=== PATIENT | female | born 1995 | race Caucasian/White ===

== ENCOUNTER 2017-06-20 19:28 | Emergency (ER) | payer MEDICAID ==
[~2017-06-20] VITALS: Ht 165.1 cm; Wt 86.9 kg
[2017-06-20 19:28] VITALS: BP 137/69
[~2017-06-20 19:28] MED LIST: ACET50TA PO; IBUP80TA PO
[2017-06-20] MEDS ORDERED: ONDANSETRON 4 MG ORAL DISINTEGRATING TAB (S0181) PO ONE (19:45)
[2017-06-20] MEDS ORDERED: GI COCKTAIL 50ML BTL(HYOSCYAMINE/MAALOX/LIDOCAINE VISCOUS)(1:3:1) PO ONE (19:45)
[2017-06-20] MEDS ORDERED: REGL10TA6 PO (19:53)
== END 2017-06-20 20:02 | disposition home or self-care (01) ==
LOC: M ED 19:51
DX: O26.891 Other specified pregnancy related conditions, first trimester (principal); R20.2 Paresthesia of skin; O21.9 Vomiting of pregnancy, unspecified; O99.331 Smoking (tobacco) complicating pregnancy, first trimester; F17.210 Nicotine dependence, cigarettes, uncomplicated; Z3A.00 Weeks of gestation of pregnancy not specified

== ENCOUNTER → 2017-10-22 | Outpatient (REF) | payer OTHER ==
[~2017-10-22] MED LIST changes: +REGL10TA6 PO
[2017-10-22 18:41] LABS: HCG, SERUM QUANTITATIVE 16767 MIU/ML
[2017-10-22 19:45] LABS: MEAN CORPUSCULAR HEMOGLOBIN 33.8 pg (27.0-33.0); MEAN CORPUSCULAR HGB CONC 35.1 g/dl (32.0-36.5); MEAN CORPUSCULAR VOLUME 96.4 fl (80.0-96.0); PLATELET COUNT, AUTOMATED 286 10^3/uL (150-450); RED CELL DISTRIBUTION WIDTH 12.1 % (11.5-14.5); WHITE BLOOD COUNT 13.4 10^3/uL (4.0-10.0)
== END ==
LOC: M LAB REF 17:12
PROVIDERS: ATTEND Obstetrics & Gynecology
DX: O36.80X0 Pregnancy with inconclusive fetal viability, not applicable or unspecified (principal); Z32.01 Encounter for pregnancy test, result positive; Z3A.00 Weeks of gestation of pregnancy not specified

== ENCOUNTER → 2017-10-26 | Outpatient (CLI) | payer OTHER ==
--- NOTE | 2017-10-27 04:18 | REP ---
Clinical: Anatomical evaluation. Comparison: None . Findings: Examination demonstrates a single live intrauterine in cephalic presentation. motion is identified by technologist. Placenta is noted anteriorly and grade zero without evidence for placenta previa or abruption. Amniotic fluid volume is low normal. Cervix measures 3.9 cm in length and appears closed. No evidence for nuchal cord. Gestational age by current measurements 30 weeks 1 day with MILAGROS 01/03/2018 . FHR equals 144 beats per minute. BPD 7.5 cm 30 weeks 2-day HC 28.0 cm 30 weeks 4 days AC 26.2 cm 30 weeks 3-day FL 5.7 cm 29 weeks 5 days HL 5.1 cm 29 weeks 4 days HC/AC ratio 1.07 Estimated weight 1527 grams ( 43rd percentile). Amniotic fluid index equals 8.3 cm (9.0 - 23.4). Anatomical assessment demonstrates normal structures including cranium, choroid plexus, cavum, cerebellum/posterior fossa, facial features, lungs, four-chamber heart/ventricular outflow tracts, diaphragm, stomach, cord insertion/three-vessel cord, kidneys/bladder, spine, and extremities. Limited evaluation of the facial profile. Impression: 1. Single live intrauterine in cephalic presentation. Limited evaluation of the facial profile noted. Remainder of the anatomical assessment is complete and normal. 2. Amniotic fluid volume is lower limits of normal. Signed by Rosendo Connor MD 10/27/2017 01:09 A
== END ==
LOC: M RAD 09:15
PROVIDERS: ATTEND Obstetrics & Gynecology
DX: O36.80X0 Pregnancy with inconclusive fetal viability, not applicable or unspecified (principal); Z3A.30 30 weeks gestation of pregnancy

== ENCOUNTER → 2017-11-05 | Outpatient (CLI) | payer OTHER ==
[2017-11-05 11:32] LABS: MEAN CORPUSCULAR HEMOGLOBIN 33.1 pg (27.0-33.0); MEAN CORPUSCULAR HGB CONC 34.8 g/dl (32.0-36.5); PLATELET COUNT, AUTOMATED 246 10^3/uL (150-450); WHITE BLOOD COUNT 9.5 10^3/uL (4.0-10.0)
[2017-11-06 08:57] LABS: AB SCREEN (INDIRECT COOMBS)VIS 1 1
== END ==
LOC: M LAB 09:31
DX: Z34.83 Encounter for supervision of other normal pregnancy, third trimester (principal)
CPT/HCPCS: 82950

== ENCOUNTER 2017-11-11 12:15 | Emergency (ER) | payer OTHER | END 2017-11-11 14:36 | disposition home or self-care (01) | LOC: M ED 12:15 | DX: O99.513 Diseases of the respiratory system complicating pregnancy, third trimester (principal); J20.9 Acute bronchitis, unspecified; B34.9 Viral infection, unspecified; Z3A.32 32 weeks gestation of pregnancy; O99.353 Diseases of the nervous system complicating pregnancy, third trimester; G43.909 Migraine, unspecified, not intractable, without status migrainosus; Z88.2 Allergy status to sulfonamides; Z88.8 Allergy status to other drugs, medicaments and biological substances; O99.333 Smoking (tobacco) complicating pregnancy, third trimester; F17.210 Nicotine dependence, cigarettes, uncomplicated | CPT/HCPCS: 87804 ==

== ENCOUNTER → 2017-12-08 | Outpatient (REF) | payer OTHER | LOC: M LAB REF 12:57 | DX: Z34.83 Encounter for supervision of other normal pregnancy, third trimester (principal); Z3A.36 36 weeks gestation of pregnancy | CPT/HCPCS: 87086 ==

== ENCOUNTER → 2017-12-08 | Outpatient (REF) | payer OTHER | LOC: M LAB REF 12:52 | DX: Z34.83 Encounter for supervision of other normal pregnancy, third trimester (principal); Z3A.36 36 weeks gestation of pregnancy | CPT/HCPCS: 87081 ==

== ENCOUNTER → 2017-12-15 | Outpatient (REF) | payer OTHER | LOC: M LAB REF 13:29 | DX: Z34.83 Encounter for supervision of other normal pregnancy, third trimester (principal) ==

== ENCOUNTER 2018-01-01 16:14 | Inpatient (IN) | payer OTHER ==
[2018-01-01] MEDS: LACTATED RINGER'S 1000 ML IV (17:38)
[2018-01-01] MEDS ORDERED: LR 1,000 ML IV (17:45)
[2018-01-01 17:46] LABS: HEMATOCRIT 35.8 % (36.0-47.0); HEMOGLOBIN 12.3 g/dl (12.0-16.0); MEAN CORPUSCULAR HEMOGLOBIN 32.6 pg (27.0-33.0); MEAN CORPUSCULAR HGB CONC 34.4 g/dl (32.0-36.5); PLATELET COUNT, AUTOMATED 261 10^3/uL (150-450); RED BLOOD COUNT 3.77 10^6/uL (4.00-5.40); RED CELL DISTRIBUTION WIDTH 12.4 % (11.5-14.5); WHITE BLOOD COUNT 12.8 10^3/uL (4.0-10.0)
[2018-01-01] MEDS ORDERED: FENTANYL 2MCG/ML ROPIVACAINE 0.2% IN 0.9% NACL 200ML IVBAG As Ordered (18:07)
[2018-01-01 18:42] LABS: AMPHETAMINES URINE REFLEX NEGATIVE (NEGATIVE); BARBITURATES URINE REFLEX NEGATIVE (NEGATIVE); BENZODIAZEPINES URINE REFLEX NEGATIVE (NEGATIVE); COCAINE METABOLITE URINE REFLE NEGATIVE (NEGATIVE); METHADONE URINE REFLEX NEGATIVE (NEGATIVE); OPIATES URINE REFLEX NEGATIVE (NEGATIVE); PHENCYCLIDINE URINE REFLEX NEGATIVE (NEGATIVE)
[2018-01-01 18:52] LABS: CANNABINOIDS URINE REFLEX PENDING CONFIRMATION (NEGATIVE)
[2018-01-01] MEDS ORDERED: OXYTOCIN 30 UNITS IN 0.9% NaCl 500ML IV BAG (J2590) As Ordered (19:32)
[2018-01-01] MEDS: OXYTOCIN DRIP 30 UNITS in APPROPRIATE DILUENT 1 EA IV (20:20)
[2018-01-01] MEDS ORDERED: IBUPROFEN 800 MG TAB PO (20:45)
[2018-01-01] MEDS ORDERED: METHYLERGONOVINE MALEATE 0.2 MG TAB PO (20:45)
[2018-01-01] MEDS ORDERED: MEASLES,MUMPS,RUBELLA VACCINE INJ (MMR-II) (90707) SC (20:45)
[2018-01-01] MEDS ORDERED: ANUSOL HC CREAM 30GM TOP (20:45)
[2018-01-01] MEDS ORDERED: ACETAMINOPHEN 500 MG TAB PO (20:45)
[2018-01-01] MEDS ORDERED: DIBUCAINE 1% OINTMENT 30GM TOP (20:45)
[2018-01-01] MEDS ORDERED: DOCUSATE SODIUM 100 MG CAP PO (20:45)
[2018-01-01 21:43] LABS: CORD GAS ABE A -2.8; CORD GAS ABE V -1.2; CORD GAS HCO3 A 22.9 MEQ/L; CORD GAS HCO3 V 23.5 MEQ/L; CORD GAS O2 SAT A 66.4 %; CORD GAS O2 SAT V 86.5 %; CORD GAS PCO2 A 43.1 mmHg; CORD GAS PCO2 V 39.5 mmHg; CORD GAS PH A 7.344 UNITS; CORD GAS PH V 7.392 UNITS; CORD GAS PO2 A 28.2 mmHg; CORD GAS PO2 V 39.4 mmHg; CORD GAS SBC A 21.3 MEQ/L; CORD GAS SBC V 23.2 MEQ/L; CORD GAS TCO2 A 24.3 MEQ/L; CORD GAS TCO2 V 24.7 MEQ/L
[2018-01-02] MEDS: OXYTOCIN DRIP 30 UNITS in APPROPRIATE DILUENT 1 EA IV (01:14)
[2018-01-02] MEDS: PRENATAL VITAMINS CHEWABLE TABLET PO (08:08)
[2018-01-02 14:58] LABS: FETAL SCREEN PROF. 1 1
[2018-01-02] MEDS: RHOGAM 300 MCG (1500 IU) INJ (J2790) IM (15:24)
[2018-01-03] MEDS: PRENATAL VITAMINS CHEWABLE TABLET PO (08:20)
== END 2018-01-03 13:10 | disposition home or self-care (01) | DRG 560 ==
LOC: M LDO 16:14 → M LDI 16:57 → M OBS 22:37
PROVIDERS: Obstetrics & Gynecology
PROC: 10E0XZZ Delivery of Products of Conception, External Approach (ICD-10-PCS; principal; 2018-01-01)
PROC: 10907ZC Drainage of Amniotic Fluid, Therapeutic from Products of Conception, Via Natural or Artificial Opening (ICD-10-PCS; 2018-01-01)
PROC: 30233S1 Transfusion of Nonautologous Globulin into Peripheral Vein, Percutaneous Approach (ICD-10-PCS; 2018-01-02)
DX: O80 Encounter for full-term uncomplicated delivery (principal); Z88.1 Allergy status to other antibiotic agents; Z37.0 Single live birth; Z3A.39 39 weeks gestation of pregnancy

== ENCOUNTER 2019-03-11 07:27 | Emergency (ER) | payer OTHER ==
[~2019-03-11] VITALS: Ht 165.1 cm; Wt 86.3 kg
[~2019-03-11 07:27] MED LIST changes: -ACET50TA PO; +IBUP-1114 PO; +MAPA500T2 PO; +PRENTAB9 PO
[2019-03-11] MEDS ORDERED: NS 1,000 ML IV ONE (08:00)
[2019-03-11] MEDS ORDERED: KETOROLAC 30 MG/ML VIAL (J1885) IV ONE (08:00)
[2019-03-11] MEDS ORDERED: ONDANSETRON 4MG/2ML VIAL (J2405) IV ONE ×2 (08:00→11:00)
[2019-03-11] MEDS ORDERED: METOCLOPRAMIDE INJ 10MG/2ML VIAL (J2765) IV ONE (08:15)
[2019-03-11] MEDS ORDERED: ACETAMINOPHEN TAB 650MG DOSE (2X325MG) PO ONE (08:15)
[2019-03-11 09:43] LABS: BASO % 0.3 % (0.0-1.0); EOS % 0.1 % (0.0-3.0); HEMATOCRIT 39.2 % (36.0-47.0); HEMOGLOBIN 13.5 g/dl (12.0-15.5); LYMPH # 1.6 10^3/uL (1.5-6.5); LYMPH % 10.4 % (24.0-44.0); MEAN CORPUSCULAR HEMOGLOBIN 32.7 pg (27.0-33.0); MEAN CORPUSCULAR HGB CONC 34.4 g/dl (32.0-36.5); MEAN CORPUSCULAR VOLUME 94.9 fl (80.0-96.0); MONO # 0.3 10^3/uL (0.0-0.8); MONO % 1.8 % (0.0-5.0); NEUTROPHILS # 13.2 10^3/uL (1.8-7.7); NEUTROPHILS % 86.5 % (36.0-66.0); PLATELET COUNT, AUTOMATED 305 10^3/uL (150-450); RED BLOOD COUNT 4.13 10^6/uL (4.00-5.40); WHITE BLOOD COUNT 15.3 10^3/uL (4.0-10.0)
[2019-03-11 10:17] LABS: ALBUMIN 3.1 GM/DL (3.2-5.2); ALT/SGPT 12 U/L (12-78); BILIRUBIN,DIRECT < 0.1 MG/DL (0.0-0.2); BILIRUBIN,TOTAL 0.2 MG/DL (0.2-1.0); BLOOD UREA NITROGEN 6 MG/DL (7-18); CALCIUM LEVEL 8.7 MG/DL (8.5-10.1); CARBON DIOXIDE LEVEL 26 MEQ/L (21-32); CHLORIDE LEVEL 108 MEQ/L (98-107); CREATININE FOR GFR 0.57 MG/DL (0.55-1.30); GLOMERULAR FILTRATION RATE > 60.0 (>60); GLUCOSE, FASTING 97 MG/DL (70-100); LIPASE 98 U/L (73-393); POTASSIUM SERUM 4.3 MEQ/L (3.5-5.1); SODIUM LEVEL 140 MEQ/L (136-145); TOTAL PROTEIN 7.2 GM/DL (6.4-8.2)
--- NOTE | 2019-03-11 10:48 | REP ---
OB ULTRASOUND: Real-time sonographic evaluation of the gravid uterus performed. There is a single living intrauterine gestation with an estimated gestational age 22 weeks based on today's ultrasound. EDC 07/15/2019. Biometry and Growth: BPD 51 mm = 21 weeks 2 days, 30th percentile HC 198 mm = 22 weeks 0 days, 47th percentile AC 168 mm = 21 weeks 6 days, 45th percentile FL 39 mm = 22 weeks 4 days, 62nd percentile HC/AC ratio 1.18 within normal range. Estimated weight 475 grams, 46th percentile SEEN/GROSSLY UNREMARKABLE Lateral ventricles Yes Posterior fossa Yes Upper lip Yes Four-chamber heart Yes LVOT Yes RVOT Yes Stomach Yes Cord insertion Yes Three vessel cord Yes Kidneys Yes Bladder Yes Spine No Cervical length: Cervix is closed and measures 4.8 cm in length. heart rate: 147 beats per minute. position: Vertex. Placenta: Anterior with no evidence of previa or abruption. Amniotic fluid: Within normal limits. Electronically Signed by Obi Rene MD 03/11/2019 01:31 P
[2019-03-11] MEDS ORDERED: ZOFR8TAB24 PO (11:34)
[2019-03-11] MEDS ORDERED: MACR100C43 PO (11:37)
[2019-03-11 11:44] VITALS: BP 122/66
== END 2019-03-11 12:13 | disposition home or self-care (01) ==
LOC: M ED 07:27
DX: O23.12 Infections of bladder in pregnancy, second trimester (principal); O99.332 Smoking (tobacco) complicating pregnancy, second trimester; Z3A.22 22 weeks gestation of pregnancy; Z88.1 Allergy status to other antibiotic agents; Z88.2 Allergy status to sulfonamides
CPT/HCPCS: 76811; 80048; 80076; 81001; 81025; 83690; 84702; 85025; 87086; 96361; 96374; 96375; 99284; J2405; J2765

== ENCOUNTER → 2019-04-12 | Outpatient (REF) | payer OTHER ==
[~2019-04-12] MED LIST changes: +MACR100C43 PO; +ZOFR8TAB24 PO
[2019-04-12 18:35] LABS: HEMATOCRIT 33.4 % (36.0-47.0); HEMOGLOBIN 11.4 g/dl (12.0-15.5); MEAN CORPUSCULAR HEMOGLOBIN 33.2 pg (27.0-33.0); MEAN CORPUSCULAR HGB CONC 34.1 g/dl (32.0-36.5); MEAN CORPUSCULAR VOLUME 97.4 fl (80.0-96.0); PLATELET COUNT, AUTOMATED 234 10^3/uL (150-450); RED BLOOD COUNT 3.43 10^6/uL (4.00-5.40); WHITE BLOOD COUNT 11.8 10^3/uL (4.0-10.0)
[2019-04-12 19:08] LABS: HCG, SERUM QUANTITATIVE 12299 MIU/ML
[2019-04-13 09:53] LABS: RUBELLA IgG QUALITATIVE IMMUNE (IMMUNE)
[2019-04-13 10:21] LABS: HEPATITIS C VIRUS ABY INDEX < 0.0 INDEX (<0.8)
[2019-04-13 10:57] LABS: HIV 1&2 SCREEN CENTAUR NEGATIVE (NEGATIVE)
== END ==
LOC: M LAB REF 16:33
PROVIDERS: ATTEND Obstetrics & Gynecology
DX: Z34.81 Encounter for supervision of other normal pregnancy, first trimester (principal)

== ENCOUNTER → 2019-05-10 | Outpatient (CLI) | payer OTHER ==
[2019-05-10 10:55] LABS: HEMATOCRIT 35.8 % (36.0-47.0); HEMOGLOBIN 12.2 g/dl (12.0-15.5); MEAN CORPUSCULAR HEMOGLOBIN 33.1 pg (27.0-33.0); MEAN CORPUSCULAR HGB CONC 34.1 g/dl (32.0-36.5); PLATELET COUNT, AUTOMATED 229 10^3/uL (150-450); RED BLOOD COUNT 3.69 10^6/uL (4.00-5.40)
== END ==
LOC: M LAB 08:58
PROVIDERS: ATTEND Obstetrics & Gynecology
DX: Z34.83 Encounter for supervision of other normal pregnancy, third trimester (principal); Z36.89 Encounter for other specified antenatal screening

== ENCOUNTER → 2019-05-17 | Outpatient (REF) | payer OTHER | LOC: M LAB REF 12:39 | PROVIDERS: ATTEND Obstetrics & Gynecology | DX: Z34.83 Encounter for supervision of other normal pregnancy, third trimester (principal) ==

== ENCOUNTER → 2019-05-23 | Outpatient (CLI) | payer OTHER ==
[~2019-05-23] MED LIST changes: +ACET-683 PO; +AUGM875T28 PO
== END ==
LOC: M LAB 07:55
PROVIDERS: ATTEND Obstetrics & Gynecology
DX: O99.810 Abnormal glucose complicating pregnancy (principal); Z3A.00 Weeks of gestation of pregnancy not specified

== ENCOUNTER → 2019-05-31 | Outpatient (REF) | payer OTHER ==
[~2019-05-31] MED LIST changes: -ACET-683 PO; -AUGM875T28 PO
== END ==
LOC: M LAB REF 13:25
PROVIDERS: ATTEND Obstetrics & Gynecology
DX: Z34.83 Encounter for supervision of other normal pregnancy, third trimester (principal)
CPT/HCPCS: 86850; 86901; 87086; J2790

== ENCOUNTER → 2019-06-23 | Outpatient (REF) | payer OTHER ==
[~2019-06-23] MED LIST changes: +ACET-683 PO; +AUGM875T28 PO
== END ==
LOC: M LAB REF 14:12
PROVIDERS: ATTEND Obstetrics & Gynecology
DX: Z34.83 Encounter for supervision of other normal pregnancy, third trimester (principal)

== ENCOUNTER 2019-07-08 10:57 | Emergency (ER) | payer OTHER ==
[~2019-07-08] VITALS: Ht 165.1 cm; Wt 85.7 kg
[2019-07-08 10:57] VITALS: BP 126/87
[~2019-07-08 10:57] MED LIST changes: -ACET-683 PO; -AUGM875T28 PO
[2019-07-08] MEDS ORDERED: AUGM875T28 PO (11:29)
[2019-07-08] MEDS ORDERED: NEOSPORIN OINT 0.9 GM PKT (FLOOR STOCK) TOP ONE (11:45)
== END 2019-07-08 11:46 | disposition home or self-care (01) ==
LOC: M ED 10:57
DX: O9A.213 Injury, poisoning and certain other consequences of external causes complicating pregnancy, third trimester (principal); S51.831A Puncture wound without foreign body of right forearm, initial encounter; W54.0XXA Bitten by dog, initial encounter; Y92.018 Other place in single-family (private) house as the place of occurrence of the external cause; Z3A.40 40 weeks gestation of pregnancy; Z88.2 Allergy status to sulfonamides; O99.333 Smoking (tobacco) complicating pregnancy, third trimester; F17.210 Nicotine dependence, cigarettes, uncomplicated

== ENCOUNTER 2019-07-09 02:34 | Inpatient (IN) | payer OTHER ==
[2019-07-09] VITALS (9 sets, daily range): BP systolic 116–146; BP diastolic 64–84
[~2019-07-09] VITALS: Ht 165.1 cm; Wt 86.0 kg
[~2019-07-09 02:34] MED LIST changes: +AUGM875T28 PO
[2019-07-09] MEDS ORDERED: LR 1,000 ML IV SCH (03:00)
[2019-07-09] MEDS ORDERED: LACTATED RINGER'S 1000 ML IV STA (03:00)
--- NOTE | 2019-07-09 03:18 | HPEPDOC ---
Obstetrical History & Physical General Date of Admission Jul 09, 2019 at 02:58 History of Present Illness Chief Complaint: Contractions, term Information Provided By: Patient Age: 23 : 4 Term: 3 Pre-term: 0 Abortions: 0 Livin Care Care: Limited Care Dating Final EDC: Jul 15, 2019 Final EDC by: 2nd trimester (US) EGA at Admission: 39 (+1) Antepartum Course Height (inches): 62 Pre- weight (lbs.): 190 Admission Weight (lbs.): 187 Past Medical History Past Obstetrical History #1: Past Obstetrical History: Primgravida (2014) Type of Delivery: Spontaneous Vaginal Del. Sex of Infant: Male (7#14) Past Obstetrical History #2: Past Obstetrical History: Multigravida (2016) Type of Delivery: Spontaneous Vaginal Del. Sex of Infant: Female (7) Complications: No Past Obstetrical History #3: Past Obstetrical History: Multigravida (2018) Type of Delivery: Spontaneous Vaginal Del. Sex of Infant: Female (7#1) Complications: No Past Medical History Surgical History: Denies/None Family History Significant Family History: Asthma, Cancer, Diabetes, Heart disease Social History Marital Status: Single Psychosocial History: No pertinent psych hx * Smoker: current smoker Alcohol: Denies Drugs: denies Abuse Violence Screening Have you been hit/kicked/slapp: No Have you been sexually assault: No Allergies Coded Allergies: sulfamethoxazole (Verified Allergy, Intermediate, swelling/hives, 03/11/19) trimethoprim (Verified Allergy, Intermediate, swelling/hives, 03/11/19) Medications Scheduled Amoxicillin/Potassium Clav (Augmentin 875-125 Tablet) 1 Each Tablet, 1 TAB PO BID Physical Examination Physical Examination GENERAL: Alert and oriented times three. BREAST: . ABDOMEN: Gravid and non-tender to touch. FETUS: Is vertex (VTX) by sterile vaginal examination (SVE), fetus is vertex (VTX) by Taiwo. HEART RATE: Regular rate and rhythm. LUNGS: Clear to auscultation (CTA). EXTREMITIES: No edema. No clonus. Deep tendon reflexes (DTRs) + 2. Pertinent Laboratoy Data Blood Type: A- RBC Antibody Screen: Negative HIV: Negative Hepatitis B: Negative Hepatitis C: Negative Rapid Plasma Reagin: Nonreactive Rubella: Immune Chlamydia/Gonorrhea: Negative Group B Streptococcus: Negative Glucose Tolerance Test: 140 (80/168/92/49) Anatomy Ultrasound Ultrasound Date: March 11, 2019 Placenta Location: Anterior Normal Anatomy: Yes Other Ultrasounds 04/15/19 f/u 1200gm 96% 06/05/19 f/u 1631gm, appropriate growth Steroid Therapy Steroid Therapy: No Vaginal Examination Dilation: 6 cm Effacement: 90% Station: -2 Cervical Consistency: Soft Cervical Position: Middle Presentation: Cephalic presentation Assessment Heart Rate (FHR): 125 Variability: Moderate Accelerations: Positive Decelerations: None Tocometer Contractions: Yes Frequency: regular, every 2-5 min. Strength: palpated as moderate Assessment/Plan Assessment Christina is a 23-year-old (G)4 para (P)3-0-0-3 at 39+1 weeks by 22-week ultrasound. Presents to Labor and Delivery (L&D) with reports of contractions since midnight and bloody show. Denies LOF. Fetus is active.. Plan Admit and orient. Lunchroom Aide and consent. Diet: clear. Group B Streptococcus (GBS) negative. Labs and intravenous (IV) per unit protocol. Counseled on Pitocin and induction of labor (IOL). Lactated Ringers (LR): Bolus 500 mL, then at 125 mL/hr. Considering epidural Anticipate normal spontaneous delivery (). C-S as appropriate. Clair Weston CNM Jul 09, 2019 03:18
[2019-07-09 03:22] LABS: HEMATOCRIT 32.6 % (36.0-47.0); HEMOGLOBIN 11.5 g/dl (12.0-15.5); MEAN CORPUSCULAR HEMOGLOBIN 32.9 pg (27.0-33.0); MEAN CORPUSCULAR HGB CONC 35.3 g/dl (32.0-36.5); MEAN CORPUSCULAR VOLUME 93.1 fl (80.0-96.0); PLATELET COUNT, AUTOMATED 228 10^3/uL (150-450)
[2019-07-09] MEDS ORDERED: OXYTOCIN 30 UNITS IN 0.9% NaCl 500ML IV BAG (J2590) As Ordered ONE (03:36)
[2019-07-09] MEDS ORDERED: FENTANYL 2MCG/ML ROPIVACAINE 0.2% IN 0.9% NACL 100ML IVBAG As Ordered ONE (03:37)
[2019-07-09 03:58] LABS: ALT/SGPT 9 U/L (12-78); BILIRUBIN,TOTAL 0.2 MG/DL (0.2-1.0); CREATININE FOR GFR 0.79 MG/DL (0.55-1.30); GLOMERULAR FILTRATION RATE > 60.0 (>60); LDH LACTATE DEHYDROGENASE 158 U/L (84-246); URIC ACID 5.3 MG/DL (2.6-6.0)
[2019-07-09] MEDS ORDERED: OXYTOCIN DRIP 30 UNITS in IV 1 EA IV SCH (05:09)
[2019-07-09] MEDS ORDERED: LIDOCAINE 1% MDV 20ML VIAL INFIL ONE (05:15)
[2019-07-09] MEDS ORDERED: RHOGAM 300 MCG (1500 IU) INJ (J2790) IM SCH (05:15)
[2019-07-09] MEDS ORDERED: MOM 30ML SUSPENSION UDC PO PRN (05:15)
[2019-07-09] MEDS ORDERED: DOCUSATE SODIUM 100 MG CAP PO PRN (05:15)
[2019-07-09] MEDS ORDERED: DIBUCAINE 1% OINTMENT 30GM TOP PRN (05:15)
[2019-07-09] MEDS ORDERED: ANUSOL HC CREAM 30GM TOP PRN (05:15)
[2019-07-09] MEDS ORDERED: ACETAMINOPHEN 500 MG TAB PO PRN (05:15)
[2019-07-09] MEDS ORDERED: MEASLES,MUMPS,RUBELLA VACCINE INJ (MMR-II) (90707) SC SCH (05:15)
[2019-07-09] MEDS ORDERED: IBUPROFEN 600 MG TAB PO PRN (05:15)
[2019-07-09] MEDS ORDERED: METHYLERGONOVINE MALEATE 0.2 MG TAB PO PRN (05:15)
[2019-07-09] MEDS ORDERED: ACETAMINOPHEN TAB 650MG DOSE (2X325MG) PO PRN (05:15)
--- NOTE | 2019-07-09 05:20 | DNPDOC ---
[facility] Delivery Note Delivery Note DATE OF DELIVERY: 07/09/19 PREDELIVERY DIAGNOSIS: 39=1/7 weeks' gestation and labor. POST DELIVERY DIAGNOSIS: Delivered. PROCEDURE: Spontaneous vaginal delivery. PROVIDER: Clair Weston CNM ANESTHESIA: None. ESTIMATED BLOOD LOSS: 300 mL. FINDINGS: 7 pound 1 ounce, 3210gm female infant, Score 9/9, nuchal cord times 1, reduced prior to delivery. DELIVERY SUMMARY: Patient is a 23-year-old 4 now para 4-0-0-4 who was admitted to labor and delivery for active labor. Onset UC 0000. Utilized physiologic coping. AROM clear fluid 0355. FD 0445. Viable female child delivered after reduction of loose nuchal cord ALEKSANDR @ 0449. Spontaneous respirations, transitioned on maternal abdomen. Cord doubly clamped and cut once pulsations ceased. Apgars 9/9. Placenta martinez, intact with 3v cord 0453. Fundus firmed with massage and IV pitocin bolus. EBL 300ml. 1st degree perineal laceration repaired after infiltration with lidocaine using 3-0 vicryl rapide. Sponge, sharp and instrument count correct. Mother is naming her daughter Shelly. Clair Weston CNM Jul 09, 2019 05:20
[2019-07-09] MEDS: PRENATAL VITAMINS CHEWABLE TABLET PO SCH (07:35)
[2019-07-09] MEDS: IBUPROFEN 800 MG TAB PO PRN ×2 (07:36→17:44)
[2019-07-09] MEDS: AUGMENTIN 875 MG TAB PO SCH ×2 (09:08→21:06)
[2019-07-10 06:45] VITALS: BP 101/63
[2019-07-10] MEDS: AUGMENTIN 875 MG TAB PO SCH (09:18)
[2019-07-10] MEDS: PRENATAL VITAMINS CHEWABLE TABLET PO SCH (09:19)
[2019-07-10] MEDS ORDERED: IBUP80TA PO (10:30)
[2019-07-10] MEDS ORDERED: ACET-683 PO (10:30)
--- NOTE | 2019-08-11 21:02 | DSES ---
DATE OF ADMISSION: 07/09/2019 DATE OF DISCHARGE: 07/10/2019 HISTORY: A 23-year-old 4, para 3 female at 39-1/7 weeks gestation, presented with regular contractions and advanced LA. She was diagnosed at 6 cm on admission. She was admitted for labor. HOSPITAL COURSE: On 07/09/2019, the patient progressed rapidly to a vaginal delivery of a 7 pound 1 ounce female infant, scores 9 and 9. She had no complications. She has an average amount of blood loss. Her course was unremarkable. She had adequate return of bladder and bowel function. Baby was stable throughout. The patient was deemed stable for discharge on day #1. ADMISSION DIAGNOSIS: , term labor. DISCHARGE DIAGNOSIS: Delivered. PROCEDURES: Spontaneous vaginal delivery. DISPOSITION: The patient will followup with [facility] in 6 weeks for routine care.
== END 2019-07-10 12:35 | disposition home or self-care (01) | DRG 560 ==
LOC: M LDO 02:34 → M LDI 02:58 → M OBS 06:41
PROVIDERS: ADMIT Advanced Practice Midwife; ATTEND Advanced Practice Midwife
PROC: 10E0XZZ Delivery of Products of Conception, External Approach (ICD-10-PCS; principal; 2019-07-09)
PROC: 10907ZC Drainage of Amniotic Fluid, Therapeutic from Products of Conception, Via Natural or Artificial Opening (ICD-10-PCS; 2019-07-09)
PROC: 0HQ9XZZ Repair Perineum Skin, External Approach (ICD-10-PCS; 2019-07-09)
DX: O99.334 Smoking (tobacco) complicating childbirth (principal); Z3A.39 39 weeks gestation of pregnancy; Z37.0 Single live birth; F17.210 Nicotine dependence, cigarettes, uncomplicated; O69.81X0 Labor and delivery complicated by cord around neck, without compression, not applicable or unspecified; O70.0 First degree perineal laceration during delivery

== ENCOUNTER 2019-08-04 08:28 | Inpatient (IN) | payer OTHER ==
[~2019-08-04] VITALS: Ht 165.1 cm; Wt 76.5 kg
[~2019-08-04 08:28] MED LIST changes: +ACET-683 PO
[2019-08-04] MEDS ORDERED: IBUPROFEN 800 MG TAB PO ONE (08:45)
[2019-08-04] MEDS ORDERED: NS 1,000 ML IV ONE (09:15)
[2019-08-04 09:27] LABS: INFLUENZA A AMPLIFICATION NEGATIVE (NEGATIVE); INFLUENZA B AMPLIFICATION NEGATIVE (NEGATIVE)
[2019-08-04 09:47] LABS: HEMATOCRIT 37.5 % (36.0-47.0); HEMOGLOBIN 13.5 g/dl (12.0-15.5); MEAN CORPUSCULAR HEMOGLOBIN 33.3 pg (27.0-33.0); MEAN CORPUSCULAR VOLUME 92.6 fl (80.0-96.0); PLATELET COUNT, AUTOMATED 198 10^3/uL (150-450); RED BLOOD COUNT 4.05 10^6/uL (4.00-5.40); WHITE BLOOD COUNT 20.4 10^3/uL (4.0-10.0)
[2019-08-04 10:22] LABS: HCG, SERUM QUALITATIVE NEGATIVE (NEGATIVE)
[2019-08-04 10:24] LABS: ALT/SGPT 11 U/L (12-78); BILIRUBIN,DIRECT 0.8 MG/DL (0.0-0.2); BILIRUBIN,TOTAL 1.4 MG/DL (0.2-1.0); CK-MB VALUE MASS < 1.0 NG/ML (<3.6); CPK CREATINE PHOSPHOKINASE 74 U/L (26-192); ETHYL ALCOHOL (ETHANOL) < 0.003 % (0.000-0.010); LIPASE 52 U/L (73-393); MB/CK RELATIVE INDEX 1.35 (< OR =4); TOTAL PROTEIN 6.9 GM/DL (6.4-8.2); TROPONIN I < 0.02 NG/ML (< 0.10)
[2019-08-04] MEDS ORDERED: ISOVUE-370 76% 100ML VIAL (Q9967) As Ordered ONE (10:55)
[2019-08-04 11:06] LABS: AMPHETAMINES LEVEL URINE NEGATIVE (NEGATIVE); BARBITURATES URINE NEGATIVE (NEGATIVE); BENZODIAZEPINES URINE NEGATIVE (NEGATIVE); CANNABINOIDS URINE POSITIVE (NEGATIVE); COCAINE METABOLITE URINE NEGATIVE (NEGATIVE); METHADONE URINE NEGATIVE (NEGATIVE); OPIATES URINE NEGATIVE (NEGATIVE); PHENCYCLIDINE URINE NEGATIVE (NEGATIVE)
[2019-08-04 11:15] LABS: MONO SCRN NEGATIVE (NEGATIVE)
[2019-08-04] MEDS ORDERED: POTASSIUM CHLORIDE 10% LIQ 20 MEQ/15 ML UDC PO ONE (11:15)
[2019-08-04] MEDS ORDERED: ONDANSETRON 4MG/2ML VIAL (J2405) IV ONE (11:15)
[2019-08-04 11:29] LABS: MAGNESIUM LEVEL 1.9 MG/DL (1.8-2.4)
--- NOTE | 2019-08-04 11:30 | REP ---
CHEST, TWO VIEWS: There is no evidence of acute infiltrate. No pleural effusion is seen. The heart is normal in size. The mediastinal silhouette is unremarkable. The visualized osseous structures are intact. IMPRESSION: No acute pulmonary disease. Electronically Signed by Obi Rene MD 08/04/2019 01:35 P
--- NOTE | 2019-08-04 11:30 | REP ---
CT of the abdomen and pelvis with IV contrast, without bowel contrast for right lower quadrant abdominal pain. There are no comparison CT studies. The visualized lung bowling are unremarkable. The hepatic parenchyma is homogeneous. The gallbladder, pancreas and spleen are unremarkable. The adrenals are unremarkable. There are multiple focal zones of decreased enhancement extending to the capsular surfaces of the kidneys bilaterally. This is compatible with pyelonephritis in the appropriate clinical setting. There are no renal calculi. There is no hydronephrosis. The abdominal aorta is unremarkable. There is no periaortic adenopathy or mass. There is no mesenteric adenopathy or ascites. There is no bowel distension or obstruction. There is wall thickening of the transverse colon and descending colon. This is compatible with colitis in the appropriate clinical setting. Pelvis: The appendix is unremarkable. The uterus and adnexa are unremarkable. There is no pelvic ascites or adenopathy. Impression: There are findings compatible with pyelonephritis in the appropriate clinical setting. There are findings compatible with colitis in the appropriate clinical setting. The gallbladder, appendix, uterus and adnexa are unremarkable. There is no ascites or adenopathy. No mass. Electronically Signed by Obi Egan MD 08/04/2019 11:20 A
[2019-08-04] MEDS ORDERED: KCL 10MEQ/100ML SWI (KRUN) 10 MEQ in IV 1 EA IV ONE (11:45)
[2019-08-04] MEDS ORDERED: cefTRIAXone SOD 1 GM in D5W MINI-BAG PLUS 50 ML IV ONE (11:45)
[2019-08-04] MEDS ORDERED: POTASSIUM CHLORIDE INJ 10 MEQ in D5W/0.2% SODIUM CHLORIDE 1,000 ML IV SCH (12:00)
[2019-08-04] MEDS ORDERED: ACET-683 PO (12:09)
--- NOTE | 2019-08-04 13:21 | HPE ---
DATE OF ADMISSION: 08/04/2019 ATTENDING PHYSICIAN: Keira ward. PRINCIPAL DIAGNOSIS: Pyelonephritis. HISTORY: Christina Murray is a 23-year-old. She is about three weeks . She presented to the emergency room with fever, chills, achiness, temperature of 102.2. She has pyuria and a CT scan that shows bilateral pyelonephritis. She is being admitted for intravenous antibiotic treatment. PAST MEDICAL HISTORY: Benign. She is a 4, para 4, who had delivered a baby girl about three weeks ago. She had no history of urinary infections or pyelonephritis previously. SOCIAL HISTORY: , nonsmoker. No alcohol. She is not currently . ALLERGIES: 1. TRIMETHOPRIM SULFA. MEDICATIONS: - vitamin REVIEW OF SYSTEMS: No frequency, urgency, dysuria, hematuria, diarrhea, rectal bleeding. PHYSICAL EXAMINATION: VITAL SIGNS: 141/67, pulse of 103, respiratory rate 16, temperature 100.2 degrees. GENERAL APPEARANCE: Alert and conversant, no distress. HEENT: Unremarkable. Pupils equal, round, reactive to light. Tympanic membranes and oropharynx benign. NECK: No masses. LUNGS: Clear. HEART: Regular rhythm without murmur. ABDOMEN: Soft, tender left upper quadrant. Bilateral CVA tenderness. EXTREMITIES: No clubbing, cyanosis, or edema. SKIN: No rash. LABS: White count 20.4, hemoglobin 13.5, platelets 198. Sodium 130, potassium 2.8, BUN 15, creatinine 1.4 (baseline creatinine 0.9). Urinalysis showed too many white cells to count, 3+ bacteria. Toxicology screen was positive for cannabinoids. Flu screen negative. Monospot negative. IMPRESSION: 1. Bilateral pyelonephritis, left worse than right. Plan is to admit to a medical/surgical bed. IV Rocephin 2 grams IV daily. IV fluids have been ordered, supplemental potassium. She has already had some potassium runs in the emergency room, which she is not tolerating well. I will give her Lactated Ringer's as an IV fluid and supplement her potassium orally. 2. Hypokalemia. Followup lab work has been ordered for tomorrow. Also repeat her magnesium, which is normal currently. Dr. Jeanette Jackson of the hospitalist group was given sign out on this patient.
[2019-08-04 14:24] VITALS: BP_SYST 108; BP_SYST 88; BP_DIAS 52; BP_DIAS 66
[2019-08-04] MEDS: KCL 20MEQ in NS 1000ML 1,000 ML IV SCH ×2 (15:43→23:32)
[2019-08-04 16:20] VITALS: BP 110/60
[2019-08-04] MEDS: ACETAMINOPHEN 500 MG TAB PO PRN (18:30)
[2019-08-04] MEDS: ONDANSETRON 4MG/2ML VIAL (J2405) IV PRN (18:30)
[2019-08-04 22:00] VITALS: BP 108/64
--- NOTE | 2019-08-05 00:03 | ECGEPIP ---
[facility] - ED Test Date: 2019-08-04 Pat Name: BETSY KIDNEY Department: Room: - Gender: Female Hvac Tech: josette : [id number] Requested By: JORGE LUIS Aden PA-C Order Number: [id number] Reading MD: Juan Nunez Measurements Intervals Mackey Rate: 96 P: 11 AK: 165 QRS: 34 QRSD: 88 T: 2 QT: 330 QTc: 418 Interpretive Statements SINUS RHYTHM NONSPECIFIC T-WAVE ABNORMALITY NO PRIORS FOR COMPARISON Electronically Signed on 08-05-2019 0:02:46 EDT by Juan Nunez
[2019-08-05 02:00] VITALS: BP 115/64
[2019-08-05] MEDS: ACETAMINOPHEN 500 MG TAB PO PRN ×4 (02:46→23:37)
[2019-08-05 06:00] VITALS: BP 124/73
[2019-08-05 07:07] LABS: HEMATOCRIT 33.8 % (36.0-47.0); HEMOGLOBIN 11.7 g/dl (12.0-15.5); MEAN CORPUSCULAR HEMOGLOBIN 33.1 pg (27.0-33.0); MEAN CORPUSCULAR HGB CONC 34.6 g/dl (32.0-36.5); MEAN CORPUSCULAR VOLUME 95.5 fl (80.0-96.0); PLATELET COUNT, AUTOMATED 203 10^3/uL (150-450); RED BLOOD COUNT 3.54 10^6/uL (4.00-5.40); WHITE BLOOD COUNT 16.2 10^3/uL (4.0-10.0)
[2019-08-05 07:32] LABS: ALBUMIN 2.1 GM/DL (3.2-5.2); BILIRUBIN,TOTAL 0.9 MG/DL (0.2-1.0); CALCIUM LEVEL 7.8 MG/DL (8.5-10.1); CREATININE FOR GFR 1.26 MG/DL (0.55-1.30); MAGNESIUM LEVEL 1.8 MG/DL (1.8-2.4); POTASSIUM SERUM 3.9 MEQ/L (3.5-5.1); TOTAL PROTEIN 6.2 GM/DL (6.4-8.2)
[2019-08-05] MEDS: ENOXAPARIN 40 MG/0.4 ML SYRINGE (J1650) SC SCH ×2 (08:10→08:18)
[2019-08-05] MEDS: cefTRIAXone SOD 2 GM in D5W MINI-BAG PLUS 50 ML IV SCH (08:10)
[2019-08-05] MEDS: KCL 20MEQ in NS 1000ML 1,000 ML IV SCH ×3 (08:11→17:09)
[2019-08-05 10:00] VITALS: BP 116/67
--- NOTE | 2019-08-05 11:55 | IPNPDOC ---
Subjective Date Seen The patient was seen on 08/05/19. Subjective Chief Complaint/HPI Again had a spike of fever early this morning t mx of 101.2. Says poor appetite, no nausea or vomiting. Had a loose bowel movement today. no chest pain or sob , no abdominal pain. has back pain. Objective Physical Examination General Exam: Positive: Alert, Cooperative, No Acute Distress Eye Exam: Positive: PERRLA, Conjunctiva & lids normal, EOMI; Negative: Sclera icteric ENT Exam: Positive: Atraumatic, Mucous membr. moist/pink, Pharynx Normal Neck Exam: Positive: Supple; Negative: JVD, thyromegaly Chest Exam: Positive: Clear to auscultation, Normal air movement Heart Exam: Positive: Rate Normal, Regular Rhythm, Normal S1, Normal S2; Negative: Murmurs, Rubs Abdomen Exam: Positive: Normal bowel sounds, Soft, Other (bilateral CVA tenderness present); Negative: Tenderness, Hepatospenomegaly Extremity Exam: Positive: Normal pulses; Negative: Clubbing, Cyanosis, Edema Skin Exam: Positive: Nl turgor and temperature; Negative: Rash, Breakdown Neuro Exam: Positive: Normal Gait, Normal Speech, Cranial Nerves 3-12 NL, Reflexes 2+ Assessment /Plan Assessment Gram negative bacteremia continue ceftriaxone Bilateral pyelonephritis, left worse than right. urine cultures pending blood cultures gram negative rods on ceftriaxone Hypokalemia. resolved. Plan/VTE VTE Prophylaxis Ordered?: Yes VS, I&O, [facility]H, [facility] Vital Signs/I&O Vital Signs Date Time Temp Pulse Resp B/P (MAP) Pulse Ox O2 Delivery O2 Flow Rate FiO2 08/05/19 10:00 98.2 102 19 116/67 (83) 98 08/04/19 08:28 Room Air I&O- Last 24 Hours up to 6 AM 08/05/19 06:00 Intake Total 3860 ml Output Total 500 ml Balance 3360 ml Laboratory Data 24H LABS Laboratory Tests 2 08/05/19 06:29: Nucleated Red Blood Cells % (auto) 0.0, Anion Gap 7L, Glomerular Filtration Rate 56.0L, Blood Urea Nitrogen 15, Creatinine 1.26, Sodium Level 136, Potassium Level 3.9, Chloride Level 104, Carbon Dioxide Level 25, Calcium Level 7.8L, Aspartate Amino Transf (AST/SGOT) 11, Alanine Aminotransferase (ALT/SGPT) 9L, Alkaline Phosphatase 105, Total Bilirubin 0.9, Total Protein 6.2L, Albumin 2.1#L, Magnesium Level 1.8, Albumin/Globulin Ratio 0.51L CBC/BMP Laboratory Tests 08/05/19 06:29 Red Blood Count 3.54 L, Mean Corpuscular Volume 95.5, Mean Corpuscular Hemoglobin 33.1 H, Mean Corpuscular Hemoglobin Concent 34.6, Red Cell Distribution Width 12.6, Calcium Level 7.8 L, Aspartate Amino Transf (AST/SGOT) 11, Alanine Aminotransferase (ALT/SGPT) 9 L, Alkaline Phosphatase 105, Total Bilirubin 0.9, Total Protein 6.2 L, Albumin 2.1 #L Microbiology Microbiology 08/04/19 Blood Culture, Received Pending 08/04/19 Blood Culture - Preliminary, Resulted 08/04/19 Urine Culture, Received Pending ROBE QUICK MD Aug 05, 2019 11:55
[2019-08-05 14:00] VITALS: BP 116/69
[2019-08-05 18:00] VITALS: BP 114/69
[2019-08-05 22:00] VITALS: BP 104/70
[2019-08-05] MEDS ORDERED: ACETAMINOPHEN TAB 650MG DOSE (2X325MG) PO ONE (22:15)
[2019-08-06] MEDS: KCL 20MEQ in NS 1000ML 1,000 ML IV SCH ×3 (01:11→22:26)
[2019-08-06 02:00] VITALS: BP 104/70
[2019-08-06 06:00] VITALS: BP 104/71
[2019-08-06 07:06] LABS: HEMATOCRIT 32.5 % (36.0-47.0); HEMOGLOBIN 10.9 g/dl (12.0-15.5); MEAN CORPUSCULAR HEMOGLOBIN 32.1 pg (27.0-33.0); MEAN CORPUSCULAR HGB CONC 33.5 g/dl (32.0-36.5); MEAN CORPUSCULAR VOLUME 95.6 fl (80.0-96.0); PLATELET COUNT, AUTOMATED 214 10^3/uL (150-450); WHITE BLOOD COUNT 9.4 10^3/uL (4.0-10.0)
[2019-08-06 07:36] LABS: ALT/SGPT 9 U/L (12-78); BILIRUBIN,TOTAL 0.7 MG/DL (0.2-1.0); BLOOD UREA NITROGEN 13 MG/DL (7-18); CALCIUM LEVEL 7.5 MG/DL (8.5-10.1); CARBON DIOXIDE LEVEL 23 MEQ/L (21-32); CHLORIDE LEVEL 108 MEQ/L (98-107); CREATININE FOR GFR 1.02 MG/DL (0.55-1.30); GLOMERULAR FILTRATION RATE > 60.0 (>60); GLUCOSE, FASTING 80 MG/DL (70-100); POTASSIUM SERUM 4.2 MEQ/L (3.5-5.1); SODIUM LEVEL 139 MEQ/L (136-145); TOTAL PROTEIN 5.1 GM/DL (6.4-8.2)
[2019-08-06] MEDS ORDERED: INFLUENZA QUADRIVALENT PF VACCINE 0.5ML SYRINGE (90686) IM ONE (09:00)
[2019-08-06] MEDS: ENOXAPARIN 40 MG/0.4 ML SYRINGE (J1650) SC SCH (09:00)
[2019-08-06] MEDS: cefTRIAXone SOD 2 GM in D5W MINI-BAG PLUS 50 ML IV SCH (09:25)
[2019-08-06 10:00] VITALS: BP 112/76
[2019-08-06] MEDS: ACETAMINOPHEN 500 MG TAB PO PRN ×2 (11:08→18:12)
--- NOTE | 2019-08-06 12:07 | IPNPDOC ---
Subjective Date Seen The patient was seen on 08/06/19. Subjective Chief Complaint/HPI continuing to have fever, had an episode of diarrhea this morning. Objective Physical Examination General Exam: Positive: Alert, Cooperative, No Acute Distress Eye Exam: Positive: PERRLA, Conjunctiva & lids normal, EOMI; Negative: Sclera icteric ENT Exam: Positive: Atraumatic, Mucous membr. moist/pink, Pharynx Normal Neck Exam: Positive: Supple; Negative: JVD, thyromegaly Chest Exam: Positive: Clear to auscultation, Normal air movement Heart Exam: Positive: Rate Normal, Regular Rhythm, Normal S1, Normal S2; Negative: Murmurs, Rubs Abdomen Exam: Positive: Normal bowel sounds, Soft, Other (bilateral CVA tenderness present); Negative: Tenderness, Hepatospenomegaly Extremity Exam: Positive: Normal pulses; Negative: Clubbing, Cyanosis, Edema Skin Exam: Positive: Nl turgor and temperature; Negative: Rash, Breakdown Neuro Exam: Positive: Normal Gait, Normal Speech, Cranial Nerves 3-12 NL, Reflexes 2+ Assessment /Plan Assessment Gram negative bacteremia with E coli continue ceftriaxone Bilateral pyelonephritis, left worse than right. urine cultures Ecoli blood cultures gram negative rods on ceftriaxone Hypokalemia. resolved. Plan/VTE VTE Prophylaxis Ordered?: Yes VS, I&O, 24H, [facility] Vital Signs/I&O Vital Signs Date Time Temp Pulse Resp B/P (MAP) Pulse Ox O2 Delivery O2 Flow Rate FiO2 08/06/19 10:00 98.0 89 17 112/76 (88) 92 08/04/19 08:28 Room Air I&O- Last 24 Hours up to 6 AM 08/06/19 06:00 Intake Total 3925 ml Output Total 2075 ml Balance 1850 ml Laboratory Data 24H LABS Laboratory Tests 2 08/06/19 06:21: Anion Gap 8, Glomerular Filtration Rate > 60.0, Blood Urea Nitrogen 13, Creatinine 1.02, Sodium Level 139, Potassium Level 4.2, Chloride Level 108H, Carbon Dioxide Level 23, Calcium Level 7.5L, Aspartate Amino Transf (AST/SGOT) 12, Alanine Aminotransferase (ALT/SGPT) 9L, Alkaline Phosphatase 151H, Total Bilirubin 0.7, Total Protein 5.1L, Albumin 2.0L, Albumin/Globulin Ratio 0.65L 08/06/19 06:22: Nucleated Red Blood Cells % (auto) 0.0 CBC/BMP Laboratory Tests 08/06/19 06:21 Calcium Level 7.5 L, Aspartate Amino Transf (AST/SGOT) 12, Alanine Aminotransferase (ALT/SGPT) 9 L, Alkaline Phosphatase 151 H, Total Bilirubin 0.7, Total Protein 5.1 L, Albumin 2.0 L 08/06/19 06:22 Red Blood Count 3.40 L, Mean Corpuscular Volume 95.6, Mean Corpuscular Hemo globin 32.1, Mean Corpuscular Hemoglobin Concent 33.5, Red Cell Distribution Width 13.1 Microbiology Microbiology 08/04/19 Blood Culture - Preliminary, Resulted 08/04/19 Blood Culture - Final, Complete Escherichia Coli 08/04/19 Urine Culture - Final, Complete Escherichia Coli ROBE QUICK MD Aug 06, 2019 12:07
[2019-08-06 14:00] VITALS: BP 118/65
[2019-08-06 16:00] VITALS: BP 120/68
[2019-08-06] MEDS: ONDANSETRON 4MG/2ML VIAL (J2405) IV PRN (16:53)
[2019-08-06] MEDS ORDERED: IBUPROFEN 400 MG TAB PO ONE (19:30)
[2019-08-06 22:00] VITALS: BP 119/85
[2019-08-07 02:00] VITALS: BP 126/80
[2019-08-07] MEDS: ACETAMINOPHEN 500 MG TAB PO PRN (05:39)
[2019-08-07] MEDS: KCL 20MEQ in NS 1000ML 1,000 ML IV SCH (05:41)
[2019-08-07] MEDS: ONDANSETRON 4MG/2ML VIAL (J2405) IV PRN (05:44)
[2019-08-07 06:00] VITALS: BP 127/79
[2019-08-07 07:28] LABS: HEMATOCRIT 32.1 % (36.0-47.0); HEMOGLOBIN 10.8 g/dl (12.0-15.5); MEAN CORPUSCULAR HGB CONC 33.6 g/dl (32.0-36.5); MEAN CORPUSCULAR VOLUME 95.3 fl (80.0-96.0); PLATELET COUNT, AUTOMATED 276 10^3/uL (150-450); RED BLOOD COUNT 3.37 10^6/uL (4.00-5.40); WHITE BLOOD COUNT 11.1 10^3/uL (4.0-10.0)
[2019-08-07 07:56] LABS: ALBUMIN 1.9 GM/DL (3.2-5.2); ALT/SGPT 10 U/L (12-78); BILIRUBIN,TOTAL 0.5 MG/DL (0.2-1.0); BLOOD UREA NITROGEN 11 MG/DL (7-18); CALCIUM LEVEL 7.2 MG/DL (8.5-10.1); CARBON DIOXIDE LEVEL 21 MEQ/L (21-32); CHLORIDE LEVEL 108 MEQ/L (98-107); CREATININE FOR GFR 1.01 MG/DL (0.55-1.30); GLOMERULAR FILTRATION RATE > 60.0 (>60); GLUCOSE, FASTING 90 MG/DL (70-100); POTASSIUM SERUM 3.8 MEQ/L (3.5-5.1); SODIUM LEVEL 137 MEQ/L (136-145); TOTAL PROTEIN 5.1 GM/DL (6.4-8.2)
[2019-08-07] MEDS: cefTRIAXone SOD 2 GM in D5W MINI-BAG PLUS 50 ML IV SCH (08:36)
[2019-08-07] MEDS: ENOXAPARIN 40 MG/0.4 ML SYRINGE (J1650) SC SCH (08:36)
[2019-08-07 10:00] VITALS: BP 122/88
--- NOTE | 2019-08-07 12:15 | IPNPDOC ---
Subjective Date Seen The patient was seen on 08/07/19. Subjective Chief Complaint/HPI Again had a fever spike last night with T max of 101.3. and this am t maxc of 104, Back pain is better, no dysuria or frequency. no nauaea or vomiting or diarrhea. Objective Physical Examination General Exam: Positive: Alert, Cooperative, No Acute Distress Eye Exam: Positive: PERRLA, Conjunctiva & lids normal, EOMI; Negative: Sclera icteric ENT Exam: Positive: Atraumatic, Mucous membr. moist/pink, Pharynx Normal Neck Exam: Positive: Supple; Negative: JVD, thyromegaly Chest Exam: Positive: Clear to auscultation, Normal air movement Heart Exam: Positive: Rate Normal, Regular Rhythm, Normal S1, Normal S2; Negative: Murmurs, Rubs Abdomen Exam: Positive: Normal bowel sounds, Soft, Other (bilateral CVA tenderness present); Negative: Tenderness, Hepatospenomegaly Extremity Exam: Positive: Normal pulses; Negative: Clubbing, Cyanosis, Edema Skin Exam: Positive: Nl turgor and temperature; Negative: Rash, Breakdown Neuro Exam: Positive: Normal Gait, Normal Speech, Cranial Nerves 3-12 NL, Refl exes 2+ Assessment /Plan Assessment Gram negative bacteremia with E coli 2/2 bottles. continue ceftriaxone will repeat cultures. Bilateral pyelonephritis, left worse than right. urine cultures Ecoli blood cultures gram negative rods on ceftriaxone Hypokalemia. resolved. Plan/VTE VTE Prophylaxis Ordered?: Yes VS, I&O, 24H, [facility] Vital Signs/I&O Vital Signs Date Time Temp Pulse Resp B/P (MAP) Pulse Ox O2 Delivery O2 Flow Rate FiO2 08/07/19 02:00 97.7 68 16 126/80 (95) 100 08/04/19 08:28 Room Air I&O- Last 24 Hours up to 6 AM 08/07/19 06:00 Intake Total 4190 ml Output Total 500 ml Balance 3690 ml Laboratory Data Microbiology Microbiology 08/04/19 Blood Culture - Final, Complete Escherichia Coli 08/04/19 Blood Culture - Final, Complete Escherichia Coli 08/04/19 Urine Culture - Final, Complete Escherichia Coli ROBE QUICK MD Aug 07, 2019 06:39
[2019-08-07 14:00] VITALS: BP 132/60
[2019-08-07] MEDS: IBUPROFEN 600 MG TAB PO PRN (14:47)
[2019-08-07 18:00] VITALS: BP 110/82
[2019-08-08] VITALS (7 sets, daily range): BP systolic 135–154; BP diastolic 80–97
[2019-08-08] MEDS: IBUPROFEN 600 MG TAB PO PRN (04:07)
[2019-08-08 06:22] LABS: HEMATOCRIT 30.7 % (36.0-47.0); HEMOGLOBIN 10.3 g/dl (12.0-15.5); MEAN CORPUSCULAR HEMOGLOBIN 32.7 pg (27.0-33.0); MEAN CORPUSCULAR HGB CONC 33.6 g/dl (32.0-36.5); MEAN CORPUSCULAR VOLUME 97.5 fl (80.0-96.0); PLATELET COUNT, AUTOMATED 311 10^3/uL (150-450); RED BLOOD COUNT 3.15 10^6/uL (4.00-5.40); WHITE BLOOD COUNT 10.5 10^3/uL (4.0-10.0)
[2019-08-08 06:50] LABS: ALBUMIN 1.9 GM/DL (3.2-5.2); ALT/SGPT 8 U/L (12-78); BILIRUBIN,TOTAL 0.2 MG/DL (0.2-1.0); BLOOD UREA NITROGEN 7 MG/DL (7-18); CALCIUM LEVEL 7.7 MG/DL (8.5-10.1); CARBON DIOXIDE LEVEL 23 MEQ/L (21-32); CHLORIDE LEVEL 110 MEQ/L (98-107); CREATININE FOR GFR 0.85 MG/DL (0.55-1.30); GLOMERULAR FILTRATION RATE > 60.0 (>60); GLUCOSE, FASTING 88 MG/DL (70-100); POTASSIUM SERUM 3.9 MEQ/L (3.5-5.1); SODIUM LEVEL 140 MEQ/L (136-145); TOTAL PROTEIN 5.5 GM/DL (6.4-8.2)
[2019-08-08] MEDS: ENOXAPARIN 40 MG/0.4 ML SYRINGE (J1650) SC SCH (09:00)
[2019-08-08] MEDS: cefTRIAXone SOD 2 GM in D5W MINI-BAG PLUS 50 ML IV SCH (09:34)
--- NOTE | 2019-08-08 11:45 | IPNPDOC ---
Subjective Date Seen The patient was seen on 08/08/19. Subjective Chief Complaint/HPI Feels well had a low grade fever last night . back pain almost resolved. no nausea or vomiting or diarrhea. Objective Physical Examination General Exam: Positive: Alert, Cooperative, No Acute Distress Eye Exam: Positive: PERRLA, Conjunctiva & lids normal, EOMI; Negative: Sclera icteric ENT Exam: Positive: Atraumatic, Mucous membr. moist/pink, Pharynx Normal Neck Exam: Positive: Supple; Negative: JVD, thyromegaly Chest Exam: Positive: Clear to auscultation, Normal air movement Heart Exam: Positive: Rate Normal, Regular Rhythm, Normal S1, Normal S2; Negative: Murmurs, Rubs Abdomen Exam: Positive: Normal bowel sounds, Soft, Other (bilateral CVA tenderness present); Negative: Tenderness, Hepatospenomegaly Extremity Exam: Positive: Normal pulses; Negative: Clubbing, Cyanosis, Edema Skin Exam: Positive: Nl turgor and temperature; Negative: Rash, Breakdown Neuro Exam: Positive: Normal Gait, Normal Speech, Cranial Nerves 3-12 NL, Reflexes 2+ Assessment /Plan Assessment Gram negative bacteremia with E coli 2/2 bottles. continue ceftriaxone. Should get 2 weeks of antibiotics. repeat cultures coming back negative Bilateral pyelonephritis, left worse than right. urine cultures Ecoli blood cultures gram negative rods on ceftriaxone. Will need 2 weeks of antibiotics. Hypokalemia. resolved. Dispo: Home in 24 to 48 hours as soon as she is afebrile for 24 hours. Plan/VTE VTE Prophylaxis Ordered?: Yes VS, I&O, 24H, [facility] Vital Signs/I&O Vital Signs Date Time Temp Pulse Resp B/P (MAP) Pulse Ox O2 Delivery O2 Flow Rate FiO2 08/08/19 10:00 96.7 71 17 138/88 (105) 99 08/04/19 08:28 Room Air I&O- Last 24 Hours up to 6 AM 08/08/19 06:00 Intake Total 3395 ml Output Total 2350 ml Balance 1045 ml Laboratory Data 24H LABS Laboratory Tests 2 08/08/19 05:57: Nucleated Red Blood Cells % (auto) 0.0, Anion Gap 7L, Glomerular Filtration Rate > 60.0, Blood Urea Nitrogen 7, Creatinine 0.85, Sodium Level 140, Potassium Level 3.9, Chloride Level 110H, Carbon Dioxide Level 23, Calcium Level 7.7L, Aspartate Amino Transf (AST/SGOT) 8, Alanine Aminotransferase (ALT/SGPT) 8L, Alkaline Phosphatase 137H, Total Bilirubin 0.2#, Total Protein 5.5L, Albumin 1.9L, Albumin/Globulin Ratio 0.53L CBC/BMP Laboratory Tests 08/08/19 05:57 Red Blood Count 3.15 L, Mean Corpuscular Volume 97.5 H, Mean Corpuscular Hemoglobin 32.7, Mean Corpuscular Hemoglobin Concent 33.6, Red Cell Distribution Width 13.3, Calcium Level 7.7 L, Aspartate Amino Transf (AST/SGOT) 8, Alanine Aminotransferase (ALT/SGPT) 8 L, Alkaline Phosphatase 137 H, Total Bilirubin 0.2 #, Total Protein 5.5 L, Albumin 1.9 L Microbiology Microbiology 08/07/19 Blood Culture - Preliminary, Resulted No growth after 24 hours . All specim... 08/07/19 Blood Culture - Preliminary, Resulted No growth after 24 hours . All specim... 08/04/19 Blood Culture - Final, Complete Escherichia Coli 08/04/19 Blood Culture - Final, Resulted Escherichia Coli 08/04/19 Urine Culture - Final, Complete Escherichia Coli ROBE QUICK MD Aug 08, 2019 11:45
[2019-08-08] MEDS: ACETAMINOPHEN 500 MG TAB PO PRN (18:48)
[2019-08-08] MEDS ORDERED: PANTOPRAZOLE 40MG INJ (PROTONIX) (C9113) IV ONE (20:00)
[2019-08-08] MEDS ORDERED: GI COCKTAIL 50ML BTL(HYOSCYAMINE/MAALOX/LIDOCAINE VISCOUS)(1:3:1) PO ONE (20:00)
[2019-08-09 02:00] VITALS: BP 142/88
[2019-08-09 06:00] VITALS: BP 144/85
[2019-08-09 06:11] LABS: HEMATOCRIT 30.8 % (36.0-47.0); HEMOGLOBIN 10.3 g/dl (12.0-15.5); MEAN CORPUSCULAR HEMOGLOBIN 31.8 pg (27.0-33.0); MEAN CORPUSCULAR HGB CONC 33.4 g/dl (32.0-36.5); MEAN CORPUSCULAR VOLUME 95.1 fl (80.0-96.0); RED BLOOD COUNT 3.24 10^6/uL (4.00-5.40)
[2019-08-09 06:26] LABS: PLATELET COUNT, AUTOMATED 426 10^3/uL (150-450)
[2019-08-09 06:40] LABS: ALBUMIN 1.9 GM/DL (3.2-5.2); ALT/SGPT 9 U/L (12-78); BILIRUBIN,TOTAL 0.3 MG/DL (0.2-1.0); BLOOD UREA NITROGEN 5 MG/DL (7-18); CALCIUM LEVEL 8.6 MG/DL (8.5-10.1); CARBON DIOXIDE LEVEL 25 MEQ/L (21-32); CHLORIDE LEVEL 109 MEQ/L (98-107); CREATININE FOR GFR 0.81 MG/DL (0.55-1.30); GLOMERULAR FILTRATION RATE > 60.0 (>60); GLUCOSE, FASTING 82 MG/DL (70-100); POTASSIUM SERUM 3.8 MEQ/L (3.5-5.1); SODIUM LEVEL 140 MEQ/L (136-145); TOTAL PROTEIN 6.2 GM/DL (6.4-8.2)
[2019-08-09] MEDS ORDERED: AUGM875T28 PO (07:51)
[2019-08-09 07:52] VITALS: BP 148/82
[2019-08-09 08:00] VITALS: BP 148/82
[2019-08-09] MEDS: ENOXAPARIN 40 MG/0.4 ML SYRINGE (J1650) SC SCH (09:00)
[2019-08-09] MEDS: cefTRIAXone SOD 2 GM in D5W MINI-BAG PLUS 50 ML IV SCH (09:42)
--- NOTE | 2019-08-09 15:34 | DSES ---
DATE OF ADMISSION: 08/04/2019 DATE OF DISCHARGE: 08/09/2019 PRIMARY DISCHARGE DIAGNOSES: 1. Acute pyelonephritis. 2. Transverse and descending colitis. 3. Transient bacteremia due to Escherichia (E) coli urinary tract infection from pyelonephritis. DISCHARGE MEDICATIONS: - Augmentin 875 mg by mouth twice a day for 9 days a total of 14 day course of antibiotics - acetaminophen 1 gram every 6 as needed for pain HOSPITAL COURSE: This is a 23-year-old female at 3 week presented to the emergency room (ER) with fever, chills, 102.2 temperature, pyuria, CT showing bilateral pyelonephritis. The patient was given intravenous (IV) Rocephin 2 grams daily, IV fluids. She was found to be hypoglycemic with potassium of 2.8 and was subsequently supplemented with resultant improvement to 3.9. The patient had a recurrent fever, 102.6 on 08/05/2019 and low grade temperature on 08/08/2019 of 100.5. White count decreased from admission of 20.4 to discharge of 12.0 with improvement of bilateral back pain to right-sided flank. The patient did have transient bacteremia with E coli found in a blood culture on 08/04/2019 with repeat blood cultures being negative on 08/07/2019. The patient had no nausea or vomiting, tolerated her diet well, was ambulating well with decreased white count, afebrile with no complaints of chills, dysuria, urgency and frequency. Urine culture, both for blood and the urine showed E coli, which was pansensitive. She was given Augmentin to complete a 14 day course from admission with nine more days of Augmentin as outpatient. LABS ON DISCHARGE: White count 12, hemoglobin 10, hematocrit 30, platelet count 426. Sodium 140, potassium 3.8, chloride 109, bicarbonate 25, BUN 5, creatinine 0.81, glucose of 82, calcium 8.6, total bilirubin 0.3, AST of 9, ALT of 9. Alkaline phosphatase of 130, albumin of 1.9, total protein of 6.2. IMAGING STUDIES: 08/04/2019 CT abdomen and pelvis showed bilateral pyelonephritis, transverse and descending colon wall thickening compatible with colitis in appropriate setting. TIME SPENT ON DISCHARGE: 30 minutes. [facility]
[2019-08-09] MEDS ORDERED: PANTOPRAZOLE 40MG INJ (PROTONIX) (C9113) IV SCH (21:00)
== END 2019-08-09 11:18 | disposition home or self-care (01) | DRG 561 ==
LOC: M ED 08:28 → M ED INP 12:35 → M MS4PR 14:34 → M MSPAV 17:20
PROVIDERS: ADMIT Family Medicine; ATTEND General Practice
DX: O86.21 Infection of kidney following delivery (principal); R78.81 Bacteremia; E87.6 Hypokalemia; O99.285 Endocrine, nutritional and metabolic diseases complicating the puerperium; B96.29 Other Escherichia coli [E. coli] as the cause of diseases classified elsewhere; K52.9 Noninfective gastroenteritis and colitis, unspecified; O99.63 Diseases of the digestive system complicating the puerperium; N10 Acute pyelonephritis

== ENCOUNTER 2020-05-03 08:59 | Emergency (ER) | payer OTHER ==
[~2020-05-03] VITALS: Ht 165.1 cm; Wt 84.1 kg
[2020-05-03] MEDS ORDERED: ONDANSETRON 4 MG ORAL DISINTEGRATING TAB PO ONE (09:30)
[2020-05-03 09:44] LABS: BILIRUBIN, URINE MANUAL NEGATIVE (NEGATIVE); GLUCOSE, URINE (UA) MANUAL NEGATIVE (NEGATIVE); KETONE, URINE MANUAL 2+ mg/dL (NEGATIVE); UROBILINOGEN, URINE MANUAL NORMAL (NORMAL)
[2020-05-03 09:49] LABS: BACTERIA, URINE SMALL AMOUNT; HYALINE CAST, URINE NONE SEEN /lpf (0-1); RBC, URINE 0-1 /hpf (0-3); SQUAMOUS EPITHELIAL CELL URINE SMALL AMOUNT /hpf (SMALL AMT)
[2020-05-03 10:37] LABS: BASO % 0.3 % (0.0-1.0); EOS % 0.3 % (0.0-3.0); HEMATOCRIT 44.3 % (36.0-47.0); HEMOGLOBIN 14.8 g/dl (12.0-15.5); LYMPH # 1.4 10^3/uL (1.5-5.0); MEAN CORPUSCULAR HEMOGLOBIN 31.5 pg (27.0-33.0); MEAN CORPUSCULAR HGB CONC 33.4 g/dl (32.0-36.5); MEAN CORPUSCULAR VOLUME 94.3 fl (80.0-96.0); MONO # 0.4 10^3/uL (0.0-0.8); NEUTROPHILS # 8.5 10^3/uL (1.5-8.5); NEUTROPHILS % 82.1 % (36.0-66.0); PLATELET COUNT, AUTOMATED 316 10^3/uL (150-450); WHITE BLOOD COUNT 10.4 10^3/uL (4.0-10.0)
--- NOTE | 2020-05-03 10:55 | REP ---
RIGHT UPPER QUADRANT ULTRASOUND: Real-time sonographic evaluation of the right upper quadrant performed. The gallbladder demonstrates no evidence of intraluminal sludge or calculi, wall thickening or pericholecystic fluid. There is no intrahepatic or extrahepatic biliary dilatation, common bile duct measuring 6 mm. Liver demonstrates no gross mass. Pancreas is not well seen due to overlying bowel gas. Right kidney demonstrates no hydronephrosis with normal size 10 x 4 cm in length. No ascites is seen. IMPRESSION: Negative right upper quadrant ultrasound. Electronically Signed by Obi Rene MD 05/03/2020 03:07 P
[2020-05-03 11:02] LABS: ALBUMIN 4.1 GM/DL (3.2-5.2); ALT/SGPT 16 U/L (12-78); BILIRUBIN,DIRECT 0.2 MG/DL (0.0-0.2); BILIRUBIN,TOTAL 0.6 MG/DL (0.2-1.0); BLOOD UREA NITROGEN 10 MG/DL (7-18); CALCIUM LEVEL 9.3 MG/DL (8.5-10.1); CARBON DIOXIDE LEVEL 26 MEQ/L (21-32); CHLORIDE LEVEL 106 MEQ/L (98-107); CREATININE FOR GFR 0.97 MG/DL (0.55-1.30); GLOMERULAR FILTRATION RATE > 60.0 (>60); GLUCOSE, FASTING 151 MG/DL (70-100); SODIUM LEVEL 137 MEQ/L (136-145); TOTAL PROTEIN 7.5 GM/DL (6.4-8.2)
[2020-05-03] MEDS ORDERED: ONDA4TAB6 PO (11:06)
[2020-05-03] MEDS ORDERED: MACR100C43 PO (11:06)
[2020-05-03 11:16] VITALS: BP 119/79
[2020-05-04] MEDS ORDERED: REGL10TA6 PO (11:15)
[2020-05-04] MEDS ORDERED: CIPR-249 PO (11:15)
== END 2020-05-03 11:17 | disposition home or self-care (01) ==
LOC: M ED 08:59
DX: R30.0 Dysuria (principal); R10.9 Unspecified abdominal pain; R11.2 Nausea with vomiting, unspecified
CPT/HCPCS: 76705; 80048; 80076; 81000; 81015; 85025; 99283; Q0162

== ENCOUNTER 2020-05-04 09:24 | Emergency (ER) | payer OTHER ==
[~2020-05-04] VITALS: Ht 165.1 cm; Wt 85.3 kg
[~2020-05-04 09:24] MED LIST changes: +ONDA4TAB6 PO
[2020-05-04] MEDS ORDERED: methylPREDNISolone INJ 125 MG/2 ML VIAL (J2930) IV ONE (09:45)
[2020-05-04] MEDS ORDERED: NS 1,000 ML IV ONE (09:45)
[2020-05-04] MEDS ORDERED: diphenhydrAMINE 50MG/ML VIAL (J1200) IV ONE (09:45)
[2020-05-04] MEDS ORDERED: FAMOTIDINE INJ 20MG/2ML VIAL (S0028 PER 1) IVP ONE (09:45)
[2020-05-04] MEDS ORDERED: METOCLOPRAMIDE INJ 10MG/2ML VIAL (J2765 PER 1) IV ONE (10:15)
[2020-05-04 10:18] LABS: BASO # 0.1 10^3/uL (0.0-0.2); BASO % 0.3 % (0.0-1.0); EOS % 0.1 % (0.0-3.0); HEMOGLOBIN 16.1 g/dl (12.0-15.5); LYMPH # 1.7 10^3/uL (1.5-5.0); LYMPH % 8.3 % (24.0-44.0); MEAN CORPUSCULAR HEMOGLOBIN 31.7 pg (27.0-33.0); MEAN CORPUSCULAR VOLUME 90.6 fl (80.0-96.0); MONO # 0.9 10^3/uL (0.0-0.8); MONO % 4.5 % (0.0-5.0); NEUTROPHILS # 17.4 10^3/uL (1.5-8.5); NEUTROPHILS % 86.3 % (36.0-66.0); PLATELET COUNT, AUTOMATED 363 10^3/uL (150-450); RED BLOOD COUNT 5.08 10^6/uL (4.00-5.40); WHITE BLOOD COUNT 20.2 10^3/uL (4.0-10.0)
[2020-05-04] MEDS ORDERED: ISOVUE-370 76% 100ML VIAL As Ordered ONE (10:30)
[2020-05-04 10:37] LABS: ERYTHROCYTE SEDIMENTATION RATE 4 mm/hr (0-20)
[2020-05-04 10:52] LABS: ALBUMIN 4.5 GM/DL (3.2-5.2); ALT/SGPT 15 U/L (12-78); BILIRUBIN,DIRECT 0.2 MG/DL (0.0-0.2); BILIRUBIN,TOTAL 0.9 MG/DL (0.2-1.0); C REACTIVE PROTEIN QUANTITATIV < 0.30 MG/DL (0.00-0.30); LIPASE 75 U/L (73-393); TOTAL PROTEIN 8.3 GM/DL (6.4-8.2)
--- NOTE | 2020-05-04 11:01 | REP ---
Chest x-ray: Two views. History: Dyspnea and cough . Comparison study: August 04, 2019 . Findings: The lungs are well inflated and free of infiltrate. The pleural angles are sharp. The heart size is normal. Pulmonary vasculature is not increased. No significant bony abnormality is seen. Impression: Negative chest x-ray. Electronically Signed by Good Polanco MD 05/04/2020 10:52 A
[2020-05-04] MEDS ORDERED: REGL10TA6 PO (11:15)
[2020-05-04] MEDS ORDERED: CIPR-249 PO (11:15)
[2020-05-04 11:25] VITALS: BP 105/57
--- NOTE | 2020-05-04 12:58 | REP ---
CT ABDOMEN AND PELVIS WITH IV BUT WITHOUT ORAL CONTRAST: HISTORY: Abdomen pain. Comparison CT study is from August 04, 2019. CT CONTRAST DOSE: 100 mL of intravenous Isovue 370. CT FINDINGS: Preliminary digital filing writer radiograph demonstrates an unremarkable bowel gas pattern. The lung bases are clear on axial CT images. The liver is normal in size, homogeneous in texture. There is minimal diffuse fatty infiltration of the liver. The spleen is unremarkable. No adrenal abnormality is seen on either side. No abnormalities noted in the pancreas or in the gallbladder. The kidneys enhance symmetrically. There is an intrarenal calculus at the lower pole collecting system on the right measuring 2-3 mm in size. The previously noted patchy contrast enhancement pattern is not apparent today. This has resolved. The left kidney is unremarkable. No retroperitoneal mass or adenopathy is observed. A normal appendix is seen. No uterine or ovarian abnormality. The urinary bladder is largely empty but appears intact. No abdominal wall defect is seen. No bony destructive lesion is appreciated. IMPRESSION: Minimal diffuse fatty infiltration of the liver. One 2 mm intrarenal calculus is seen in the right kidney. No hydronephrosis is noted. No other abnormality. Electronically Signed by Good Polanco MD 05/04/2020 01:02 P
== END 2020-05-04 11:27 | disposition home or self-care (01) ==
LOC: M ED 09:24
DX: N39.0 Urinary tract infection, site not specified (principal); T36.95XA Adverse effect of unspecified systemic antibiotic, initial encounter; X58.XXXA Exposure to other specified factors, initial encounter; Y92.89 Other specified places as the place of occurrence of the external cause; K76.0 Fatty (change of) liver, not elsewhere classified; Z79.899 Other long term (current) drug therapy; Z88.8 Allergy status to other drugs, medicaments and biological substances; F17.210 Nicotine dependence, cigarettes, uncomplicated
CPT/HCPCS: 36415; 71046; 74177; 80047; 80076; 81001; 83690; 84702; 85025; 85652; 86140; 96361; 96374; 96375; 99284; J1200; J2765; J2930; Q9967

== ENCOUNTER → 2020-11-23 | Outpatient (REF) | payer OTHER ==
[~2020-11-23] MED LIST changes: +CIPR-249 PO
[2020-11-23 13:04] LABS: CHLAMYDIA DNA AMPLIFICATION NEGATIVE (NEGATIVE); GC DNA AMPLIFICATION NEGATIVE (NEGATIVE)
== END ==
LOC: M SFHCWAGY 10:04
PROVIDERS: ATTEND Physician Assistant
DX: R30.0 Dysuria (principal)

== ENCOUNTER 2021-02-13 11:03 | Emergency (ER) | payer OTHER ==
[~2021-02-13] VITALS: Ht 165.1 cm; Wt 81.1 kg
[2021-02-13 12:26] LABS: BASO # 0.1 10^3/uL (0.0-0.2); BASO % 0.3 % (0.0-1.0); EOS # 0.1 10^3/uL (0.0-0.5); EOS % 0.3 % (0.0-3.0); HEMATOCRIT 47.8 % (36.0-47.0); HEMOGLOBIN 16.4 g/dl (12.0-15.5); LYMPH % 11.1 % (24.0-44.0); MEAN CORPUSCULAR HEMOGLOBIN 32.8 pg (27.0-33.0); MEAN CORPUSCULAR HGB CONC 34.3 g/dl (32.0-36.5); MEAN CORPUSCULAR VOLUME 95.6 fl (80.0-96.0); MONO # 0.9 10^3/uL (0.0-0.8); MONO % 4.8 % (2.0-8.0); NEUTROPHILS # 15.1 10^3/uL (1.5-8.5); PLATELET COUNT, AUTOMATED 320 10^3/uL (150-450); WHITE BLOOD COUNT 18.2 10^3/uL (4.0-10.0)
[2021-02-13] MEDS ORDERED: NS 1,000 ML IV ONE (12:40)
[2021-02-13] MEDS ORDERED: METOCLOPRAMIDE INJ 10MG/2ML VIAL (J2765 PER 1) IV ONE (12:40)
[2021-02-13 13:09] LABS: ALBUMIN 4.7 GM/DL (3.2-5.2); ALT/SGPT 15 U/L (12-78); BILIRUBIN,DIRECT 0.2 MG/DL (0.0-0.2); BLOOD UREA NITROGEN 10 MG/DL (7-18); CALCIUM LEVEL 10.3 MG/DL (8.5-10.1); CARBON DIOXIDE LEVEL 23 MEQ/L (21-32); CHLORIDE LEVEL 106 MEQ/L (98-107); CREATININE FOR GFR 0.94 MG/DL (0.55-1.30); GLOMERULAR FILTRATION RATE > 60.0 (>60); GLUCOSE, FASTING 150 MG/DL (70-100); HCG, SERUM QUANTITATIVE 61 MIU/ML; LIPASE 71 U/L (73-393); POTASSIUM SERUM 3.6 MEQ/L (3.5-5.1); SODIUM LEVEL 137 MEQ/L (136-145)
--- NOTE | 2021-02-13 14:40 | REP ---
INDICATION: positive hcg. COMPARISON: None. TECHNIQUE: Real-time sonographic evaluation of pelvis performed utilizing transabdominal and endovaginal technique. FINDINGS: The uterus measures 8.3 x 4.5 x 6.0 cm. The endometrium measures 13 mm in AP dimension with a few tiny internal cystic areas. No gestational sac is seen. There is no endometrial fluid collection. The ovaries are normal in size and echotexture, right ovary measuring 2.3 x 1.9 x 1.8 cm and left ovary 3.5 x 1.7 x 2.0 cm. There is no adnexal mass. There is no free fluid. There is no ovarian torsion with duplex Doppler evaluation. IMPRESSION: Essentially negative pelvic ultrasound. Endometrial thickness 13 mm with no gestational sac or fluid collection. Normal ovaries with no torsion. No adnexal mass or free fluid. Differential diagnosis would include very early intrauterine , missed AB, or ectopic . Suggest correlation with serial quantitative beta HCG values, and follow-up ultrasound if necessary. <Electronically signed by Obi Rene > 02/13/21 [id number]
[2021-02-13 14:49] LABS: AMPHETAMINES LEVEL URINE NEGATIVE (NEGATIVE); BARBITURATES URINE NEGATIVE (NEGATIVE); BENZODIAZEPINES URINE NEGATIVE (NEGATIVE); CANNABINOIDS URINE POSITIVE (NEGATIVE); COCAINE METABOLITE URINE NEGATIVE (NEGATIVE); METHADONE URINE NEGATIVE (NEGATIVE); OPIATES URINE NEGATIVE (NEGATIVE); PHENCYCLIDINE URINE NEGATIVE (NEGATIVE)
[2021-02-13] MEDS ORDERED: REGL10TA6 PO (15:02)
[2021-02-13] MEDS ORDERED: CEPH500C PO (15:36)
[2021-02-13] MEDS ORDERED: ONDANSETRON 4MG/2ML VIAL IV ONE (15:40)
[2021-02-13 16:32] VITALS: BP 140/75
== END 2021-02-13 16:37 | disposition home or self-care (01) ==
LOC: M ED 11:03
DX: Z32.01 Encounter for pregnancy test, result positive (principal); R11.2 Nausea with vomiting, unspecified; F12.288 Cannabis dependence with other cannabis-induced disorder; N39.0 Urinary tract infection, site not specified; D72.829 Elevated white blood cell count, unspecified
CPT/HCPCS: 76801; 76817; 80048; 80076; 80307; 81001; 83690; 84702; 85025; 87086; 93976; 96361; 96374; 96375; 99284; J2405; J2765

== ENCOUNTER 2021-03-18 06:54 | Inpatient (IN) | payer OTHER ==
[~2021-03-18] VITALS: Ht 165.1 cm; Wt 84.5 kg
[~2021-03-18 06:54] MED LIST changes: +CEPH500C PO
[2021-03-18] MEDS ORDERED: ONDANSETRON 4MG/2ML VIAL IV ONE (07:40)
[2021-03-18] MEDS ORDERED: NS 1,000 ML IV ONE (07:40)
[2021-03-18 07:53] LABS: BASO # 0.1 10^3/uL (0.0-0.2); BASO % 0.2 % (0.0-1.0); HEMATOCRIT 44.5 % (36.0-47.0); HEMOGLOBIN 16.2 g/dl (12.0-15.5); LYMPH # 2.2 10^3/uL (1.5-5.0); LYMPH % 7.7 % (24.0-44.0); MEAN CORPUSCULAR HEMOGLOBIN 33.1 pg (27.0-33.0); MEAN CORPUSCULAR HGB CONC 36.4 g/dl (32.0-36.5); MEAN CORPUSCULAR VOLUME 90.8 fl (80.0-96.0); MONO # 2.2 10^3/uL (0.0-0.8); MONO % 7.6 % (2.0-8.0); NEUTROPHILS # 24.3 10^3/uL (1.5-8.5); NEUTROPHILS % 83.9 % (36.0-66.0); PLATELET COUNT, AUTOMATED 426 10^3/uL (150-450); WHITE BLOOD COUNT 28.9 10^3/uL (4.0-10.0)
[2021-03-18] MEDS ORDERED: POTASSIUM CHLORIDE 10% LIQ 20 MEQ/15 ML UDC PO ONE (08:05)
[2021-03-18] MEDS ORDERED: KCL 20MEQ IN 100ML SWI (KRUN) 20 MEQ in IV 1 EA IV ONE ×2 (08:05)
[2021-03-18 08:13] LABS: HCG, SERUM QUALITATIVE POSITIVE (NEGATIVE)
[2021-03-18] MEDS: KCL 10MEQ/100ML SWI (KRUN) X 2 DOSES (20MEQ TOTAL) IV SCH ×4 (08:39→09:49)
[2021-03-18] MEDS ORDERED: cefTRIAXone SOD 2 GM in D5W MINI-BAG PLUS 50 ML IV ONE (09:10)
[2021-03-18] MEDS ORDERED: NS 1,390 ML in IV 1 EA IV ONE (09:10)
[2021-03-18 09:13] LABS: ALBUMIN 4.7 GM/DL (3.2-5.2); BILIRUBIN,DIRECT 0.2 MG/DL (0.0-0.2); BILIRUBIN,TOTAL 0.9 MG/DL (0.2-1.0); BLOOD UREA NITROGEN 15 MG/DL (7-18); CALCIUM LEVEL 10.4 MG/DL (8.5-10.1); CARBON DIOXIDE LEVEL 24 MEQ/L (21-32); CHLORIDE LEVEL 81 MEQ/L (98-107); CREATININE FOR GFR 1.76 MG/DL (0.55-1.30); GLOMERULAR FILTRATION RATE 37.5 (>60); GLUCOSE, FASTING 133 MG/DL (70-100); HCG, SERUM QUANTITATIVE 67415 MIU/ML; LIPASE 37 U/L (73-393); MAGNESIUM LEVEL 1.9 MG/DL (1.8-2.4); PHOSPHORUS LEVEL 4.3 MG/DL (2.5-4.9); POTASSIUM SERUM 2.2 MEQ/L (3.5-5.1); SODIUM LEVEL 131 MEQ/L (136-145); TOTAL PROTEIN 8.5 GM/DL (6.4-8.2)
--- NOTE | 2021-03-18 09:33 | REP ---
INDICATION: sepsis, (need proper shielding for abdominal region. COMPARISON: 05/04/2020. TECHNIQUE: Single portable AP view of the chest was performed. FINDINGS: There is no acute infiltrate or pulmonary edema. Lungs are clear. The heart is not significantly enlarged. The mediastinal silhouette is unremarkable. The visualized osseous structures are intact. IMPRESSION: No acute pulmonary disease. <Electronically signed by Obi Rene > 03/18/21 [id number]
[2021-03-18 09:48] LABS: ALT/SGPT 18 U/L (12-78)
--- NOTE | 2021-03-18 09:54 | REP ---
INDICATION: post serum quant/abdominal pain. COMPARISON: None TECHNIQUE: Transabdominal only FINDINGS: The uterus measures 10.2 x 6.2 x 6.7 cm. Within the uterus there is an anechoic structure with increased echoes surrounding it consistent with a decidual reaction. A tiny anechoic structures also seen within the gestational sac consistent with a yolk sac. Echogenic material is seen within the gestational sac consistent with a pole the mean crown-rump length measurement of which is consistent with an 8 week 4 day gestational age. Based on that the MILAGROS is 10/26/2021. Doppler interrogation of the heart is a heart rate of 161 beats per minute. Neither ovary was visualized. IMPRESSION: Early OB ultrasound as described above. <Electronically signed by Mayank Martell > 03/18/21 [id number]
[2021-03-18 11:58] LABS: TROPONIN I < 0.02 NG/ML (< 0.10)
[2021-03-18] MEDS ORDERED: ACETAMINOPHEN TAB 650MG DOSE (2X325MG) PO PRN (12:00)
[2021-03-18] MEDS ORDERED: NS 1,000 ML IV SCH (12:00)
--- NOTE | 2021-03-18 12:52 | HPEPDOC ---
[facility] Medical History & Physical Date of Admission March 18, 2021 Date of Service: March 18, 2021 Attending Physician: Leena Jaimes MD History and Physical CHIEF COMPLAINT: n/v/d HISTORY OF PRESENT ILLNESS: Patient is a 25-year-old female with past medical history of pyelonephritis, history of urinary tract infection and anxiety presented to [facility] emergency room today with the chief complaint of increased nausea, vomiting and diarrhea over the past several days. The patient states abdominal pain is diffuse, 6/10, sharp and dull, waxing and waning, due to her end localized more centrally. She has vomited at least 20 times a day initially she says there was some blood but now there is no blood in her vomit. She denies any blood in her diarrhea which she also says is associated with the vomiting and also 20 times per day. Other associated symptoms include chest pain substernal worsened after throwing up, nonradiating, currently 2/10 on pain scale. Increased short us of breath, chills , body numbness including hands feet and face which she believes is secondary to anxiety attacks from her symptoms. She states she's had 2 episodes of the numbness and tingling one for 5 minutes yesterday and then another for 56 minutes today. She denies any sick contacts, changes in her diet, changes in medications, fevers, recent immunizations, recent travel. When symptoms did not improve at home with Pepto-Bismol the patient came to the for further evaluation. In the emergency room vital signs showed rest her RR 24, heart rate 131, blood pressure stable. Saturating well on room air. Chest x-ray negative. Abnormal labs include WBC 28.9, H&H 16.2/44, sodium 131, chloride 81, potassium 2.2, calcium 10.4, creatinine 1.76 (baseline creatinine is normally within normal limits). HCG positive, lactic acid 5.9. UA negative, blood cultures were drawn 2 sets. Patient was given Rocephin for empiric abx coverage, potassium 50 mEq total was given, IVFs started. OB ultrasound showed an 8 week 4 day gestational age fetus. ECG was abnormal- Showed T wave inversion in Leads III, aVR, V1, V2 and V3. When compared to old ECG from 07/2019 she had inverted T waves in III, aVR, V1 and V2- not in V3 at that time. Patient admitted to chest pain 3/10 on pain scale, substernal and nonradiating. Troponin negative. This was discussed with Dr. Larios who says in younger person some of these changes can be normal, other new changes could be 2/2 to different lead placement. On exam the patient stated to have some right lower quadrant pain, 5/10 on pain scale . Due to being 8 weeks gestational age fetus, CT was discussed with OB who recommended to hold off on CT if able. Abdominal ultrasound was ordered, results could not r/o appendicitis. Patient was ultimately admitted for SIRS, r/o GI pathology (i.e. appendicitis) vs. other source of infection, acute kidney injury. REVIEW OF SYSTEMS: Neg except for what is mentioned above PAST MEDICAL HISTORY: Hx of UTI with pyelonephritis Anxiety Cannabinoid use Tobacco use PAST SURGICAL HISTORY: None FAMILY HISTORY: Father: None. Alive Mother: None. Alive SOCIAL HISTORY: smoker for 10 years, ALLERGIES: Please see below. HOME MEDICATIONS: Please see below. PHYSICAL EXAMINATION: VS: 97.7 F, HR 54, RR 16, BP 117/67, 100% on 2 L NC CONSTITUTIONAL: Appears ill but in bed, NAD, O x 3 EYES: PERRLA, EOM intact HENT, MOUTH: Normocephalic, atraumatic, moist mucous membranes, NC in place NECK: SUPPLE, no JVD, no lymphadenopathy, no carotid bruit CV: sinus bradycardia, S1S2 normal, no murmurs/rubs/gallops RESPIRATORY: Clear to auscultation bilaterally, no rales/rhonchi/wheezes GI: RLQ pain, 5/10 on pain scale BS positive in 4 quadrants, soft, nontender, nondistended, no rebound or guarding, no organomegaly : Deferred MUSCULOSKELETAL: Normal ROM. No cyanosis, clubbing, swelling, joint deformity, extremity edema INTEGUMENTARY: Intact, no rashes, no lesions, no erythema NEUROLOGIC: Cranial Nerves II-XII are intact, no focal deficits PSYCHIATRIC: Mood and affect are normal LABORATORY DATA: Please see below IMAGING: CXR: no acute process OB US: 8 weeks gestational age fetus Pelvic US r/o appendicitis: ASSESSMENT: 25-year-old female with past medical history of pyelonephritis, history of urinary tract infection and anxiety admitted for SIRS, r/o GI pathology (i.e. appendicitis) vs. other source of infection, acute kidney injury. PLAN: SIRS, r/o GI pathology (i.e. appendicitis) vs. other source of infection -WBC 28.9K, tachycardia, LA 5.9, RLQ pain, n/v/d -pelvic US could not r/o appendicitis -Cannot do CT with 8 wk gestation -UA neg, Bcx pending, GI panel ordered -F/u MRI abdomen, daily labs, repeat LA -Treating empirically with Zosyn, IVFs, tylenol, zofran PRN -Tele, monitor for s/s worsening Acute kidney injury likely prerenal -Cr 1.76, baseline wnl -S/p 3 liters IVF in ER, started on NSS at 125 cc/hr -F/u repeat labs today and tomorrow in AM -Avoid nephrotoxic meds Hyponatremia, hypochloridemia likely 2/2 to dehydration 2/2 to GI loss of fluids -IVFs -f/u repeat labs Acute hypokalemia likely 2/2 to GI loss from vomiting, diarrhea -K 2.2, s/p 50 mEq IV and PO -F/u repeat labs this afternoon, replace PRN , 8 weeks -OB consulted, Dr. Garnica -OB US above Chest pain, r/o cardiac (lower probability) vs. 2/2 to associated wretching, acid reflux -Chest pain as described above, trop neg -ECG was abnormal (see below) -Cycle CE x 2 additional labs -Discussed case with cardiology. No need to suspect ACS unless trops bump or chest pain should worsen, other s/s of ACS occur -PPI, zofran PRN -Tele Abnormal ECG -ECG today: Showed T wave inversion in Leads III, aVR, V1, V2 and V3. -When compared to old ECG from 07/2019 she had inverted T waves in III, aVR, V1 and V2- not in V3 at that time. P -This was discussed with Dr. Larios who says in younger person some of these changes can be normal, other new changes could be 2/2 to different lead placement. -Cycle trops, f/u repeat ECG in AM -Tele Hx of anxiety -Likely had 2 anxiety attacks over last evening and yesterday with generalized numbness, tingling with increased feelings of anxiety -Monitor closely Tobacco use -Nicotine patch PRN GI px -PPI DVT px -heparin DISPOSITION: Admitted as acute inpatient. OB consulted. Plan is discharge home when medically improved. Vital Signs Vital Signs Date Time Temp Pulse Resp B/P (MAP) Pulse Ox O2 Delivery O2 Flow Rate FiO2 03/18/21 09:03 54 99 03/18/21 09:01 Nasal Cannula 2.0 03/18/21 09:00 117/67 (84) 03/18/21 08:54 16 03/18/21 07:09 97.7 Laboratory Data Labs 24H Laboratory Tests 2 03/18/21 07:25: Immature Granulocyte % (Auto) 0.6, Neutrophils (%) (Auto) 83.9H, Lymphocytes (%) (Auto) 7.7L, Monocytes (%) (Auto) 7.6, Eosinophils (%) (Auto) 0.0, Basophils (%) (Auto) 0.2, Neutrophils # (Auto) 24.3H, Lymphocytes # (Auto) 2.2, Monocytes # (Auto) 2.2H, Eosinophils # (Auto) 0.0, Basophils # (Auto) 0.1, Nucleated Red Blood Cells % (auto) 0.0, Urine Color YELLOW, Urine Appearance HAZY, Urine pH 9.0, Urine Specific [place] 1.018, Urine Protein 2+H, Urine Glucose (UA) NEGATIVE, Urine Ketones 2+H, Urine Blood NEGATIVE, Urine Nitrite NEGATIVE, Urine Bilirubin NEGATIVE, Urine Urobilinogen 0.2, Urine Leukocyte Esterase NEGATIVE, Urine WBC (Auto) 1, Urine RBC (Auto) 1, Urine Hyaline Casts (Auto) 1, Urine Bacteria (Auto) NEGATIVE, Urine Squamous Epithelial Cells 1, Urine Mucus (Auto) SMALL, Urine Sperm (Auto) , Anion Gap 26H, Glomerular Filtration Rate 37.5L, Calcium Level 10.4H, Phosphorus Level 4.3, Magnesium Level 1.9, Total Bilirubin 0.9, Direct Bilirubin 0.2, Aspartate Amino Transf (AST/SGOT) 16, Alanine Aminotransferase (ALT/SGPT) 18, Alkaline Phosphatase 73, Troponin I < 0.02, Total Protein 8.5H, Albumin 4.7, Albumin/Globulin Ratio 1.2, Lipase 37L, Human Chorionic Gonadotropin, Qual POSITIVEA, Human Chorionic Gonadotropin, Quant [id number] 03/18/21 07:45: POC Glucose (Misc Panel) 145H, POC Sodium (Misc Panel) 132L, POC Potassium (Misc Panel) 2.8*L, POC Chloride (Misc Panel) 79L, POC Total CO2 (Misc Panel) 31.0H, POC Blood Urea Nitrogen (Misc Panel 14, POC Ionized Calcium (Misc Panel) 4.0L, POC Creatinine (Misc Panel) 1.1, POC Hematocrit (Misc Panel) 49.0 03/18/21 07:47: POC Beta HCG, Quantitative > 2000.0 03/18/21 08:10: Lactic Acid Level 5.9*H CBC/BMP Laboratory Tests 03/18/21 07:25 Microbiology Microbiology 03/18/21 Respiratory Virus Panel (PCR) (INGA) - Final, Complete 03/18/21 Blood Culture, Received Pending 03/18/21 Blood Culture, Received Pending Home Medications No Active Prescriptions or Reported Meds Allergies Coded Allergies: sulfamethoxazole (Verified Allergy, Intermediate, swelling/hives, 03/11/19) trimethoprim (Verified Allergy, Intermediate, swelling/hives, 03/11/19) lorazepam (Verified Adverse Reaction, Mild, VOMITING, 03/18/21) A-FIB/CHADSVASC A-FIB History Current/History of A-Fib/PAF?: No Current PO Anticoag Therapy: No Age/Risk Factor Scoring CHADSVASC: CHADSVASC Response (Comments) Value Age Risk Factor Age < 65 years old 0 Gender Risk Factor Female 1 Hx of CHF No 0 Hx of HTN No 0 Hx of Stroke/TIA/or VTE No 0 Hx of Diabetes No 0 Hx of Vascular Disease No 0 Total 1 Treatment Treatment ordered: Other Other anticoagulant ordered: heparin Leena Jaimes MD March 18, 2021 12:52
--- NOTE | 2021-03-18 12:53 | REP ---
INDICATION: RLQ pain eval for appy. COMPARISON: None. TECHNIQUE: Real-time sonographic evaluation of right lower quadrant performed. FINDINGS: Appendix could not be visualized. I cannot exclude appendicitis. No free fluid or fluid collection is seen. Intrauterine gestation is noted with heart rate of 156 beats per minute. The right ovary measures 2.8 x 1.7 x 2.2 cm. There is blood flow seen within the right ovary with duplex Doppler evaluation, resistive index 0.62. IMPRESSION: Appendix could not be visualized. I cannot exclude appendicitis. No free fluid. Normal right ovary. <Electronically signed by Obi Rene > 03/18/21 [id number]
[2021-03-18 14:23] VITALS: BP 115/72
[2021-03-18] MEDS: ONDANSETRON 4MG/2ML VIAL IV PRN ×2 (14:48→20:35)
[2021-03-18] MEDS: PIPERACILLIN/TAZOBACTAM SOD 3.375 GM in D5W MINI-BAG PLUS 50 ML IV SCH ×2 (14:50→18:41)
[2021-03-18] MEDS: NICOTINE 14 MG/24 HR TRANSDERMAL TD SCH (14:50)
[2021-03-18] MEDS: PANTOPRAZOLE 40MG VIAL (C9113 PER 1) IV SCH (15:09)
[2021-03-18 16:00] VITALS: BP_SYST 102; BP_DIAS 55; BP_DIAS 61
--- NOTE | 2021-03-18 16:06 | ECGEPIP ---
[facility] Test Date: 2021-03-18 Pat Name: BETSY KIDNEY Department: Room: - Gender: Female [employer] Compounder: JARON : 1995 Requested By: JOHN Lundberg Order Number: [id number] Reading MD: Roddy Larios Measurements Intervals Lena Rate: 59 P: 11 AL: 168 QRS: 47 QRSD: 96 T: 9 QT: 450 QTc: 445 Interpretive Statements Sinus bradycardia Nonspecific ST & T wave abnormality (Cannot rule out myocardial ischemia). More prominent repolarization abnormalities and decreased heart rate compared w with 08/04/2019. Electronically Signed on 03-18-2021 16:06:07 EDT by Roddy Larios
[2021-03-18 16:43] LABS: ALBUMIN 3.3 GM/DL (3.2-5.2); ALT/SGPT 14 U/L (12-78); BILIRUBIN,TOTAL 0.7 MG/DL (0.2-1.0); BLOOD UREA NITROGEN 10 MG/DL (7-18); CALCIUM LEVEL 8.3 MG/DL (8.5-10.1); CARBON DIOXIDE LEVEL 28 MEQ/L (21-32); CHLORIDE LEVEL 96 MEQ/L (98-107); CREATININE FOR GFR 0.72 MG/DL (0.55-1.30); GLOMERULAR FILTRATION RATE > 60.0 (>60); GLUCOSE, FASTING 108 MG/DL (70-100); POTASSIUM SERUM 2.3 MEQ/L (3.5-5.1); SODIUM LEVEL 136 MEQ/L (136-145); TOTAL PROTEIN 6.1 GM/DL (6.4-8.2)
[2021-03-18] MEDS ORDERED: POTASSIUM CHLORIDE 10 MEQ SR TABLET PO ONE (16:55)
[2021-03-18 17:09] LABS: MAGNESIUM LEVEL 1.9 MG/DL (1.8-2.4)
[2021-03-18] MEDS: KCL 40MEQ in NS 1000ML 1,000 ML IV SCH (17:29)
[2021-03-18] MEDS: POTASSIUM CHLORIDE 10 MEQ SR TABLET PO SCH ×2 (17:30→20:34)
--- NOTE | 2021-03-18 18:13 | CR ---
CONSULTATION DATE: 03/18/2021 The patient called by Leena Jaimes MD due to patient being 8 weeks gestation for consult. The patient is a 25-year-old female with an extensive history of pyelonephritis, urinary tract infection, presented to the emergency room with complaints of increasing nausea, vomiting, diarrhea over the past several days. Upon evaluation in the emergency room, she was found to have an 8 week gestation fetus on ultrasound without any issues, good heart rate. However, her white count was found to be elevated at 28. She was afebrile but given her significant level of pain and the fact that she had a low potassium, she was recommended for admission by the hospitalist. She was seen and evaluated by Dr. Leena Jaimes who called for the consult. The patient at this junction other than nausea and vomiting has no obstetrical complaints, no bleeding, no urinary symptoms. Her full history reviewed, chart also reviewed. Blood pressure on admission was 110/70, white count 28.9, H&H 16.2/44, a potassium level of 2.2. EKG was done in the emergency room which shows an abnormal T-wave. Phone consultation done by Dr. Jaimes with Dr. Larios. No other concerns from a cardiac issue. I was asked to evaluate this patient for possible use of CT scan given that the patient is afebrile at this point and with the significant white count, I did recommend that she be admitted for rule out possible infection and she be placed on antibiotic for continual monitoring. If at this point she continues to have an elevated white count or became febrile at this point the benefit of doing a CT scan may outweigh the risk. No obstetrical exam was done at this point. ASSESSMENT: Intrauterine at 8 weeks gestation, being admitted for evaluation for possible sepsis, elevated white count, pelvic pain, history of pyelonephritis, no obvious signs of infection at this point. PLAN: Case discussed with Dr. Jaimes via phone. She will be hydrated with IV antibiotic and upon discharge, a followup with , obstetrical care. If patient's condition changes while in the hospital, please reconsult as needed.
[2021-03-18 20:00] VITALS: BP 110/68
[2021-03-18] MEDS ORDERED: POTASSIUM CHLORIDE 10 MEQ SR TABLET PO SCH (21:00)
--- NOTE | 2021-03-18 22:05 | REPVR ---
PROCEDURE INFORMATION: Exam: MR Abdomen Without Contrast, Appendix Exam date and time: 03/18/2021 9:38 PM Age: 25 years old Clinical indication: Abdominal pain; Other: Sirs, wbc 28k, R/O appendicitis vs. Other infection TECHNIQUE: Imaging protocol: MR of the abdomen without contrast. COMPARISON: CT ABD/PEL W/IV CONTRAST ONLY 05/04/2020 10:33 AM FINDINGS: Liver: Visualized liver unremarkable. No mass. Gallbladder and bile ducts: Visualized gallbladder unremarkable. No stones. No ductal dilation. Pancreas: Visualized pancreas unremarkable. No ductal dilation. Spleen: Visualized spleen unremarkable. No splenomegaly. Adrenals: Unremarkable. No mass. Kidneys and ureters: Unremarkable. No solid mass. No hydronephrosis. Stomach and bowel: Visualized stomach and intestines are unremarkable. Appendix: The appendix is within normal limits. There is no appendiceal enlargement, periappendiceal inflammatory changes or abscess. Intraperitoneal space: No free fluid. Arteries: No abdominal aortic aneurysm. Reproductive: Single intrauterine gestation demonstrated in the 1st trimester within the uterus. Bones/joints: Mild disc desiccation L4-L5 with bulging annulus. Soft tissues: Unremarkable. IMPRESSION: 1. The appendix is within normal limits. There is no appendiceal enlargement, periappendiceal inflammatory changes or abscess. 2. Single intrauterine gestation demonstrated in the 1st trimester within the uterus. Electronically signed by: Edgard Myers On 03/18/2021 22:05:04 PM
[2021-03-18 22:19] LABS: INR 1.14; PROTHROMBIN TIME 14.9 SECONDS (12.5-14.3)
[2021-03-18 22:20] LABS: PARTIAL THROMBOPLASTIN TIME 29.1 SECONDS (24.2-38.5)
[2021-03-18 22:28] LABS: ALBUMIN 3.4 GM/DL (3.2-5.2); ALT/SGPT 15 U/L (12-78); BILIRUBIN,TOTAL 1.1 MG/DL (0.2-1.0); BLOOD UREA NITROGEN 10 MG/DL (7-18); CALCIUM LEVEL 8.1 MG/DL (8.5-10.1); CARBON DIOXIDE LEVEL 31 MEQ/L (21-32); CHLORIDE LEVEL 98 MEQ/L (98-107); CREATININE FOR GFR 0.99 MG/DL (0.55-1.30); GLOMERULAR FILTRATION RATE > 60.0 (>60); GLUCOSE, FASTING 96 MG/DL (70-100); POTASSIUM SERUM 2.4 MEQ/L (3.5-5.1); SODIUM LEVEL 136 MEQ/L (136-145); TOTAL PROTEIN 6.6 GM/DL (6.4-8.2); TROPONIN I 0.04 NG/ML (< 0.10)
[2021-03-18] MEDS: KCL 10MEQ/100ML SWI (KRUN) 10 MEQ in IV 1 EA IV SCH (23:15)
[2021-03-19] VITALS (7 sets, daily range): BP systolic 108–128; BP diastolic 66–80
[2021-03-19] MEDS: KCL 10MEQ/100ML SWI (KRUN) 10 MEQ in IV 1 EA IV SCH (00:41)
[2021-03-19] MEDS: PROMETHAZINE INJ 25 MG/ML VIAL (J2550) IV PRN ×2 (00:41→14:04)
[2021-03-19] MEDS: KCL 40MEQ in NS 1000ML 1,000 ML IV SCH ×3 (01:03→17:07)
[2021-03-19] MEDS: PIPERACILLIN/TAZOBACTAM SOD 3.375 GM in D5W MINI-BAG PLUS 50 ML IV SCH ×4 (01:57→20:41)
[2021-03-19 05:48] LABS: HEMATOCRIT 35.8 % (36.0-47.0); MEAN CORPUSCULAR HEMOGLOBIN 32.7 pg (27.0-33.0); MEAN CORPUSCULAR HGB CONC 34.6 g/dl (32.0-36.5); MEAN CORPUSCULAR VOLUME 94.5 fl (80.0-96.0); RED BLOOD COUNT 3.79 10^6/uL (4.00-5.40); WHITE BLOOD COUNT 15.7 10^3/uL (4.0-10.0)
[2021-03-19 05:51] LABS: HEMOGLOBIN 12.4 g/dl (12.0-15.5); PLATELET COUNT, AUTOMATED 285 10^3/uL (150-450)
[2021-03-19 06:16] LABS: ALBUMIN 2.9 GM/DL (3.2-5.2); ALT/SGPT 13 U/L (12-78); BILIRUBIN,TOTAL 0.9 MG/DL (0.2-1.0); BLOOD UREA NITROGEN 8 MG/DL (7-18); CALCIUM LEVEL 7.8 MG/DL (8.5-10.1); CARBON DIOXIDE LEVEL 31 MEQ/L (21-32); CHLORIDE LEVEL 104 MEQ/L (98-107); CREATININE FOR GFR 0.85 MG/DL (0.55-1.30); GLOMERULAR FILTRATION RATE > 60.0 (>60); GLUCOSE, FASTING 85 MG/DL (70-100); POTASSIUM SERUM 2.9 MEQ/L (3.5-5.1); SODIUM LEVEL 138 MEQ/L (136-145)
[2021-03-19] MEDS ORDERED: POTASSIUM CHLORIDE 10 MEQ SR TABLET PO ONE ×2 (08:05→12:00)
[2021-03-19 08:37] LABS: MAGNESIUM LEVEL 2.2 MG/DL (1.8-2.4)
[2021-03-19] MEDS: PANTOPRAZOLE 40MG VIAL (C9113 PER 1) IV SCH (08:42)
[2021-03-19] MEDS: NICOTINE 14 MG/24 HR TRANSDERMAL TD SCH (08:43)
--- NOTE | 2021-03-19 13:37 | IPNPDOC ---
Text Note Date of Service The patient was seen on 03/19/21. NOTE SUBJECTIVE: -Nauseous overnight, improved with antiemetics -No abdominal pain -MRI shows normal appendix OBJECTIVE: VS: HDS, afebrile, on room air CONSTITUTIONAL: NAD, AO x 3 EYES: PERRLA, EOM intact HENT, MOUTH: Normocephalic, atraumatic, moist mucous membranes NECK: SUPPLE, no JVD, no lymphadenopathy, no carotid bruit CV: S1S2 normal, has episodes of ectopic beats otherwise mostly sinus, no murmurs/rubs/gallops RESPIRATORY: Clear to auscultation bilaterally, no rales/rhonchi/wheezes GI: Normoactive bowel sounds in 4 all quadrants, soft, nontender, nondistended, no rebound or guarding, no organomegaly MUSCULOSKELETAL: Normal ROM. No cyanosis, clubbing, swelling, joint deformity, extremity edema INTEGUMENTARY: Intact, no rashes, no lesions, no erythema NEUROLOGIC: Cranial Nerves II-XII are intact, no focal deficits PSYCHIATRIC: Mood and affect are normal LABORATORY DATA: WBC 15.7 Hgb 12.4 platelets 285 na 138 K 2.9 Cr .085 Micro: 1 of 2 Bcx from 03/18 - growing GPCs in [facility] IMAGING: CXR: no acute process OB US: 8 weeks gestational age fetus Pelvic US: Appendix could not be visualized. I cannot exclude appendicitis. No free fluid or fluid collection is seen. Intrauterine gestation is noted with heart rate of 156 beats per minute. The right ovary measures 2.8 x 1.7 x 2.2 cm. There is blood flow seen within the right ovary with duplex Doppler evaluation, resistive index 0.62. IMPRESSION: Appendix could not be visualized. I cannot exclude appendicitis. No free fluid. Normal right ovary. MRI abdomen without contrast: Liver: Visualized liver unremarkable. No mass. Gallbladder and bile ducts: Visualized gallbladder unremarkable. No stones. No ductal dilation. Pancreas: Visualized pancreas unremarkable. No ductal dilation. Spleen: Visualized spleen unremarkable. No splenomegaly. Adrenals: Unremarkable. No mass. Kidneys and ureters: Unremarkable. No solid mass. No hydronephrosis. Stomach and bowel: Visualized stomach and intestines are unremarkable. Appendix: The appendix is within normal limits. There is no appendiceal enlargement, periappendiceal inflammatory changes or abscess. Intraperitoneal space: No free fluid. Arteries: No abdominal aortic aneurysm. Reproductive: Single intrauterine gestation demonstrated in the 1st trimester within the uterus. Bones/joints: Mild disc desiccation L4-L5 with bulging annulus. Soft tissues: Unremarkable. IMPRESSION: 1. The appendix is within normal limits. There is no appendiceal enlargement, periappendiceal inflammatory changes or abscess. 2. Single intrauterine gestation demonstrated in the 1st trimester within the uterus. ASSESSMENT: 25-year-old W with past medical history of pyelonephritis, frequent urinary tract infections and anxiety who presented with intractable nausea admitted for SIRS, r/o GI pathology and acute kidney injury and found to be 8w , dehydrated with lactic acidosis and hypokalemia. PLAN: SIRS, r/o infection: Presented with WBC 28.9K, tachycardia, LA 5.9, RLQ pain, n/v/d -pelvic US could not r/o appendicitis, MRI was without evidence of appendicitis or other GI pathology -UA negative -1 of 2 Bcx from 03/18 growing GPCs in clusters, not sure if its coag neg staph contaminant vs. true bacteremia, will order more BCx today, 2 sets -GI panel ordered -Repeat LA normalized after hydration -Continue empiric Zosyn and IVF Acute kidney injury 2/2 dehydration i/s/o intractable vomiting possibly 2/2 hype remesis gravidarum i/s/o newly noted with 8w gestation +/- cyclic vomiting 2/2 marijuana use (has a history of). -Cr 1.76 that normalized now after hydration -S/p IVF in ER, continuing on NS with 40meq K until she tolerating PO -Avoid nephrotoxic meds Hyponatremia, hypochloridemia, hypokalemia likely 2/2 to dehydration 2/2 to GI loss of fluids i/s/o nausea and emesis -IVFs -repeat BMP this afternoon , 8 weeks -OB consulted by prior attending, Dr. Garnica -OB US above Chest pain, unlikely cardiac (lower probability) vs. 2/2 to associated wretching, acid reflux -Chest pain as described above, trop neg -ECG was abnormal (see below) -Prior attending discussed case with Dr. Larios. No need to suspect ACS unless troponin bump or chest pain should worsen -PPI, zofran PRN -Tele Abnormal ECG -Showed T wave inversion in Leads III, aVR, V1, V2 and V3. -When compared to old ECG from 07/2019 she had inverted T waves in III, aVR, V1 and V2- not in V3 at that time. Unlikely clinically significant. -This was discussed with Dr. Larios by the prior attending (Dr. Jaimes) who reportedly said that in young individuals some of these changes can be normal, other new changes could be 2/2 to different lead placement. -Troponins were wnl -Tele with episodes of asymptomatic bradycardia. Hx of anxiety -Likely had 2 anxiety attacks over last evening and yesterday with generalized numbness, tingling with increased feelings of anxiety -Monitor closely Tobacco use -Nicotine patch GI px -PPI DVT px -heparin DISPOSITION: Admitted as acute inpatient. Plan is discharge home when medically improved and tolerating PO with diclegis for hyperemesis gravidarum for severe nausea with referral to OB. VS,Fishbone, I+O VS, Fishbone, I+O Laboratory Tests 03/18/21 15:57 03/18/21 21:45 03/19/21 02:17 03/19/21 05:11 Vital Signs Date Time Temp Pulse Resp B/P (MAP) Pulse Ox O2 Delivery O2 Flow Rate FiO2 03/19/21 07:08 97.8 60 18 112/66 (81) 97 Room Air 03/19/21 04:00 1.0 I&O- Last 24 Hours up to 6 AM 03/19/21 06:00 Intake Total 3080 ml Output Total 970 ml Balance 2110 ml REJI WANG MD March 19, 2021 08:21
--- NOTE | 2021-03-19 15:05 | ECGEPIP ---
[facility] Test Date: 2021-03-19 Pat Name: BETSY KIDNEY Department: Room: [place] [address] Gender: Female Cane Burner: MARIANA : 1995 Requested By: Leena Basurto Order Number: [id number] Reading MD: Roddy Larios Measurements Intervals [place] Rate: 64 P: 7 VT: 166 QRS: 35 QRSD: 96 T: 7 QT: 412 QTc: 425 Interpretive Statements Normal sinus rhythm Nonspecific ST & T wave abnormality (cannot rule out myocardial ischemia). Increased heart rate compared with 03/18/2021 at 9:07 AM. Electronically Signed on 03-19-2021 15:05:13 EDT by Roddy Larios
[2021-03-19 15:32] LABS: BLOOD UREA NITROGEN 9 MG/DL (7-18); CARBON DIOXIDE LEVEL 28 MEQ/L (21-32); CHLORIDE LEVEL 108 MEQ/L (98-107); CREATININE FOR GFR 0.75 MG/DL (0.55-1.30); GLOMERULAR FILTRATION RATE > 60.0 (>60); GLUCOSE, FASTING 99 MG/DL (70-100); POTASSIUM SERUM 3.6 MEQ/L (3.5-5.1); SODIUM LEVEL 140 MEQ/L (136-145)
[2021-03-20] MEDS: KCL 40MEQ in NS 1000ML 1,000 ML IV SCH (00:55)
[2021-03-20] MEDS: PIPERACILLIN/TAZOBACTAM SOD 3.375 GM in D5W MINI-BAG PLUS 50 ML IV SCH ×2 (01:55→06:45)
[2021-03-20 04:00] VITALS: BP 115/80
[2021-03-20 05:17] LABS: HEMOGLOBIN 11.5 g/dl (12.0-15.5); MEAN CORPUSCULAR HEMOGLOBIN 32.9 pg (27.0-33.0); MEAN CORPUSCULAR HGB CONC 33.8 g/dl (32.0-36.5); MEAN CORPUSCULAR VOLUME 97.1 fl (80.0-96.0); PLATELET COUNT, AUTOMATED 258 10^3/uL (150-450); WHITE BLOOD COUNT 12.1 10^3/uL (4.0-10.0)
[2021-03-20 05:33] LABS: ALBUMIN 2.8 GM/DL (3.2-5.2); ALT/SGPT 27 U/L (12-78); BLOOD UREA NITROGEN 7 MG/DL (7-18); CALCIUM LEVEL 8.3 MG/DL (8.5-10.1); CARBON DIOXIDE LEVEL 28 MEQ/L (21-32); CHLORIDE LEVEL 108 MEQ/L (98-107); CREATININE FOR GFR 0.72 MG/DL (0.55-1.30); GLOMERULAR FILTRATION RATE > 60.0 (>60); GLUCOSE, FASTING 75 MG/DL (70-100); POTASSIUM SERUM 4.1 MEQ/L (3.5-5.1); SODIUM LEVEL 139 MEQ/L (136-145); TOTAL PROTEIN 5.2 GM/DL (6.4-8.2)
[2021-03-20 07:47] VITALS: BP 120/80
[2021-03-20] MEDS ORDERED: PREN1CHW6 PO (08:28)
[2021-03-20] MEDS ORDERED: DICL10TA PO (08:28)
[2021-03-20] MEDS: PANTOPRAZOLE 40MG VIAL (C9113 PER 1) IV SCH (08:30)
[2021-03-20] MEDS: NICOTINE 14 MG/24 HR TRANSDERMAL TD SCH (08:31)
--- NOTE | 2021-03-20 09:29 | ECHO ---
DATE OF PROCEDURE: 03/19/2021 Age: 25 Gender: Female Height: 165 cm Weight: 80 kg REFERRING PHYSICIAN: Dr. Jaimes. INDICATION: Bradycardia. MEASUREMENTS: IVS 0.8 cm LV 4.5 cm LVPW 0.9 cm LA 3.6 cm Aorta 2.7 cm IVC 2.1 cm Mitral E wave velocity 87 A wave 56 E prime septal 11.3 E prime lateral 16.5 FINDINGS: This study is of good technical quality. Patient is in sinus rhythm. Left ventricle is normal size and has normal systolic function with estimated LVEF approximately 60%. No segmental wall motion abnormalities are appreciated. Right ventricle is also normal size and systolic function. Both atria appear normal. Aortic, mitral, and tricuspid valves were well visualized and appear normal. Pulmonic valve was not well seen. No pericardial effusion is noted. Inferior vena cava is relatively large but collapses at least partially with inspiration indicative of likely normal or mildly elevated central venous pressure. Aortic root, aortic arch, and visualized segment of abdominal aorta appear normal. Doppler interrogation reveals competent aortic valve. There is trace mitral and trace tricuspid insufficiency. Mitral inflow pattern and tissue Doppler imaging of mitral annulus revealed normal diastolic function. CONCLUSIONS: 1. Study is of good technical quality, underlying sinus rhythm. 2. Normal LV size with preserved LV systolic and diastolic function. 3. No significant valvular disease. 4. Normal to mildly elevated central venous pressure, unable to estimate pulmonary artery pressure, but no signs to suggest pulmonary hypertension. MTDD
--- NOTE | 2021-03-20 14:35 | DS.PDOC ---
Discharge Summary General Date of Admission March 18, 2021 at 13:03 Date of Discharge 03/20/2021 Attending Physician: REJI WANG MD Discharge Summary PROCEDURES PERFORMED DURING STAY: None ADMITTING DIAGNOSES: 1. Nausea, vomiting 2. 1st trimester 3. SIRS with c/f sepsis DISCHARGE DIAGNOSES: Hyperemesis gravidarum 1st trimester Dehydration RAHEL Hypokalemia Hyponatremia Anxiety Cannabinoid use Tobacco use COMPLICATIONS/CHIEF COMPLAINT: 1ST Trimester , N/V, Sirs. HISTORY OF PRESENT ILLNESS: 25-year-old W with past medical history of pyelonephritis and anxiety presented to [facility] emergency room with the chief complaint of increased nausea, vomiting over several days. She had vomited at least 20 times a day and so she came in. She denied any blood in her stool and mild bloody streaking with her latest emesis likely from retching. Other associated symptoms include chest pain worsened after throwing up without any recent changes in medications, fevers, recent immunizations, recent travel. When symptoms did not improve at home with Pepto-Bismol the patient came to the for further evaluation. HOSPITAL COURSE: In the emergency room vital signs showed rest her RR 24, heart rate 131, blood pressure stable. Saturating well on room air. Chest x-ray was negative. Abnormal labs include WBC 28.9, H&H 16.2/44, sodium 131, chloride 81, potassium 2.2, calcium 10.4, creatinine 1.76 (baseline creatinine is normally within normal limits). HCG positive, lactic acid 5.9. UA negative, blood cultures were drawn 2 sets. Patient was given Rocephin for empiric abx coverage, potassium 50 mEq total was given, IVFs started. OB ultrasound showed an 8 week 4 day gestational age fetus. ECG was abnormal- Showed T wave inversion in Leads III, aVR, V1, V2 and V3. When compared to old ECG from 07/2019 she had inverted T waves in III, aVR, V1 and V2- not in V3 at that time. Troponin negative. This was discussed with Dr. Larios who says in younger person some of these changes can be normal, other new changes could be 2/2 to different lead placement. On exam the patient stated to have some right lower quadrant pain, 5/10 on pain scale . Due to being 8 weeks gestational age fetus, CT was discussed with OB who recommended to hold off. Abdominal ultrasound was ordered, results could not r/o appendicitis. Patient was ultimately admitted for SIRS, r/o GI pathology (i.e. appendicitis) vs. other source of infection and acute kidney injury. A follow up MRI of the abdomen visualized and showed a normal appendix. Her pain resolved nad N/V resolved with antiemetics. RAHEL resolved with hydration and electrolyte abnormalities were corrected. She had episodes of asymptomatic bradycardia that were all sinus without any evidence of heart block. We discussed that she likely had hyperemesis gravidarum and would benefit from refraining from marijuana use. She is now being discharged home with vitamins and diclegis for N/V with PCP and ob appointments. Of note, she did have 1 bottle of 2 from initial blood cultures that grew GPCs in clusters and I highly suspected that to be due to contamination with negative repeat cultures and nonfocal examination and resolution of SIRS leukocytosis with hydration. DISCHARGE MEDICATIONS: Please see below. ALLERGIES: Please see below. PHYSICAL EXAMINATION ON DISCHARGE: VITAL SIGNS: Please see below. CONSTITUTIONAL: NAD, AO x 3 EYES: PERRLA, EOM intact HENT, MOUTH: Normocephalic, atraumatic, moist mucous membranes, poor dentition NECK: SUPPLE, no JVD, no lymphadenopathy, no carotid bruit CV: S1S2 normal, has episodes of ectopic beats otherwise mostly sinus, no murmurs/rubs/gallops RESPIRATORY: Clear to auscultation bilaterally, no rales/rhonchi/wheezes GI: Normoactive bowel sounds in 4 all quadrants, soft, nontender, nondistended, no rebound or guarding, no organomegaly MUSCULOSKELETAL: Normal ROM. No cyanosis, clubbing, swelling, joint deformity, extremity edema INTEGUMENTARY: Intact, no rashes, no lesions, no erythema NEUROLOGIC: Cranial Nerves II-XII are intact, no focal deficits PSYCHIATRIC: Mood and affect are normal LABORATORY DATA: please see below IMAGING: CXR: no acute process OB US: 8 weeks gestational age fetus Pelvic US: Appendix could not be visualized. I cannot exclude appendicitis. No free fluid or fluid collection is seen. Intrauterine gestation is noted with heart rate of 156 beats per minute. The right ovary measures 2.8 x 1.7 x 2.2 cm. There is blood flow seen within the right ovary with duplex Doppler evaluation, resistive index 0.62. IMPRESSION: Appendix could not be visualized. I cannot exclude appendicitis. No free fluid. Normal right ovary. MRI abdomen without contrast: Liver: Visualized liver unremarkable. No mass. Gallbladder and bile ducts: Visualized gallbladder unremarkable. No stones. No ductal dilation. Pancreas: Visualized pancreas unremarkable. No ductal dilation. Spleen: Visualized spleen unremarkable. No splenomegaly. Adrenals: Unremarkable. No mass. Kidneys and ureters: Unremarkable. No solid mass. No hydronephrosis. Stomach and bowel: Visualized stomach and intestines are unremarkable. Appendix: The appendix is within normal limits. There is no appendiceal enlargement, periappendiceal inflammatory changes or abscess. Intraperitoneal space: No free fluid. Arteries: No abdominal aortic aneurysm. Reproductive: Single intrauterine gestation demonstrated in the 1st trimester within the uterus. Bones/joints: Mild disc desiccation L4-L5 with bulging annulus. Soft tissues: Unremarkable. IMPRESSION: 1. The appendix is within normal limits. There is no appendiceal enlargement, periappendiceal inflammatory changes or abscess. 2. Single intrauterine gestation demonstrated in the 1st trimester within the uterus. PROGNOSIS: Good ACTIVITY: As tolerated DIET: regular DISCHARGE PLAN: home with PCP and OB appointment DISPOSITION: Home, Self-Care. DISCHARGE INSTRUCTIONS: vitamin daily. Diclegis for hyperemesis. PCP and OB follow up. ITEMS TO FOLLOWUP ON ON OUTPATIENT: 1st trimester DISCHARGE CONDITION: Stable TIME SPENT ON DISCHARGE: 36 minutes. Vital Signs/I&Os Vital Signs Date Time Temp Pulse Resp B/P (MAP) Pulse Ox O2 Delivery O2 Flow Rate FiO2 03/20/21 07:47 97.6 78 20 120/80 (93) 98 03/20/21 04:00 Room Air 03/19/21 04:00 1.0 I&O- Last 24 Hours up to 6 AM 03/20/21 06:00 Intake Total 1520 ml Output Total 0 ml Balance 1520 ml Laboratory Data Labs 24H Laboratory Tests 2 03/19/21 14:53: Anion Gap 4L, Glomerular Filtration Rate > 60.0, Calcium Level 8.0L 03/20/21 04:22: Anion Gap 3L, Glomerular Filtration Rate > 60.0, Calcium Level 8.3L, Nucleated Red Blood Cells % (auto) 0.0, Total Bilirubin 1.0, Aspartate Amino Transf (AST/SGOT) 37, Alanine Aminotransferase (ALT/SGPT) 27, Alkaline Phosphatase 56, Total Protein 5.2L, Albumin 2.8L, Albumin/Globulin Ratio 1.2 03/20/21 06:00: Methicillin-Resist S.aureus DNA PCR NOT DETECTED CBC/BMP Laboratory Tests 03/19/21 14:53 03/20/21 04:22 Microbiology Microbiology 03/19/21 Blood Culture, Received Pending 03/18/21 Respiratory Virus Panel (PCR) (INGA) - Final, Complete 03/18/21 Blood Culture - Preliminary, Resulted No Growth after 48 hours. All Specime... 03/18/21 Blood Culture - Preliminary, Resulted Discharge Medications Scheduled Doxylamine Succinate/Vit B6 (Diclegis Dr 10-10 mg Tablet) 1 Each Tablet.dr, 2 TAB PO QPM Vit37/Iron/Folic Acid ([place] Chewable Tablet) 1 Each Tab.chew, 1 TAB PO DAILY Allergies Coded Allergies: sulfamethoxazole (Verified Allergy, Intermediate, swelling/hives, 03/11/19) trimethoprim (Verified Allergy, Intermediate, swelling/hives, 03/11/19) lorazepam (Verified Adverse Reaction, Mild, VOMITING, 03/18/21) REJI WANG MD March 20, 2021 14:35
== END 2021-03-20 12:01 | disposition home or self-care (01) | DRG 566 ==
LOC: M ED 06:54 → EDBD 06:54 → M ED INP 13:03 → M PCU 14:18
PROVIDERS: ADMIT Internal Medicine; ATTEND Internal Medicine
DX: O21.1 Hyperemesis gravidarum with metabolic disturbance (principal); N17.9 Acute kidney failure, unspecified; E86.0 Dehydration; O99.321 Drug use complicating pregnancy, first trimester; F17.200 Nicotine dependence, unspecified, uncomplicated; F12.90 Cannabis use, unspecified, uncomplicated; O99.281 Endocrine, nutritional and metabolic diseases complicating pregnancy, first trimester; O99.331 Smoking (tobacco) complicating pregnancy, first trimester; Z88.2 Allergy status to sulfonamides; Z88.8 Allergy status to other drugs, medicaments and biological substances; Z3A.08 8 weeks gestation of pregnancy

== ENCOUNTER 2021-04-26 15:36 | Emergency (ER) | payer OTHER ==
[~2021-04-26] VITALS: Ht 165.1 cm; Wt 74.0 kg
[~2021-04-26 15:36] MED LIST changes: +DICL10TA PO; +PREN1CHW6 PO
[2021-04-26] MEDS ORDERED: ONDANSETRON 4MG/2ML VIAL IV ONE (17:35)
[2021-04-26] MEDS ORDERED: MULTIVITAMIN -ADULT INJECTION 10 ML, THIAMINE INJection 100 MG, FOLIC ACID 1 MG in NS 1... IV ONE (17:35)
[2021-04-26] MEDS ORDERED: KCL 10MEQ/100ML SWI (KRUN) 10 MEQ in IV 1 EA IV ONE (17:35)
[2021-04-26 17:40] LABS: BASO % 0.2 % (0.0-1.0); EOS % 0.1 % (0.0-3.0); HEMATOCRIT 41.9 % (36.0-47.0); HEMOGLOBIN 15.2 g/dl (12.0-15.5); LYMPH # 1.6 10^3/uL (1.5-5.0); LYMPH % 10.9 % (24.0-44.0); MEAN CORPUSCULAR HEMOGLOBIN 33.2 pg (27.0-33.0); MEAN CORPUSCULAR HGB CONC 36.3 g/dl (32.0-36.5); MEAN CORPUSCULAR VOLUME 91.5 fl (80.0-96.0); MONO # 0.8 10^3/uL (0.0-0.8); MONO % 5.3 % (2.0-8.0); NEUTROPHILS # 11.8 10^3/uL (1.5-8.5); NEUTROPHILS % 82.9 % (36.0-66.0); PLATELET COUNT, AUTOMATED 347 10^3/uL (150-450); RED BLOOD COUNT 4.58 10^6/uL (4.00-5.40); WHITE BLOOD COUNT 14.2 10^3/uL (4.0-10.0)
[2021-04-26] MEDS ORDERED: ALBUTEROL 90 MCG/ACT 8GM HFA INHALER INH ONE (17:40)
[2021-04-26 18:07] LABS: ALBUMIN 3.7 GM/DL (3.2-5.2); BILIRUBIN,DIRECT 0.3 MG/DL (0.0-0.2); BILIRUBIN,TOTAL 0.9 MG/DL (0.2-1.0); TOTAL PROTEIN 7.6 GM/DL (6.4-8.2)
--- NOTE | 2021-04-26 18:33 | REP ---
INDICATION: upper abd pain/vomiting. FINDINGS: Multiple ultrasonographic images of the liver show the hepatic parenchymal echo texture to appear unremarkable. There are no focal masses. There is no intrahepatic ductal dilatation. The common bile duct measures approximately 6 mm in its greatest transverse dimension. Multiple ultrasonographic images of the gallbladder show no focal or diffuse gallbladder wall thickening. There are no echogenic foci within the gallbladder lumen, which casts acoustic shadows. There is no pericholecystic edema. Images of the pancreatic region show no gross abnormality. The imaged portion of the right kidney is unremarkable. IMPRESSION: The common bile duct is not frankly dilated, however, it is upper limits of normal for this age group. Follow-up is suggested. Accredited by the [employer] in General Ultrasound. <Electronically signed by Mayank Martell > 04/26/21 [id number]
--- NOTE | 2021-04-26 18:38 | REP ---
INDICATION: pelvic pain. COMPARISON: None. TECHNIQUE: Transabdominal FINDINGS: Multiple ultrasonographic images of the gravid uterus shows a single living intrauterine gestation in the transverse head maternal left position. Doppler interrogation of the heart shows a heart rate of 146 beats per minute. The placenta is posterior not low lying. The cervix measures 3.1 cm in length and is closed. BPD: 2.6 cm 14 weeks 4 days HC: 9.9 cm 14 weeks 4 days AC: 7.6 cm 14 weeks 0 days FL: 1.2 cm 13 weeks 4 days The estimated weight is 85 g. The fetus was too small for an anatomical screen. IMPRESSION: Early OB ultrasound as described above with an estimated gestational age of 14 weeks 0 days via composite criteria and an estimated date of delivery of 10/25/2021 by today's exam. No abnormalities were noted. <Electronically signed by Mayank Martell > 04/26/21 [id number]
[2021-04-26] MEDS ORDERED: METOCLOPRAMIDE INJ 10MG/2ML VIAL (J2765 PER 1) IV ONE (19:20)
[2021-04-26] MEDS ORDERED: POTASSIUM CHLORIDE 10 MEQ SR TABLET PO ONE (20:50)
[2021-04-26 22:53] VITALS: BP 133/80
[2021-04-26 22:57] LABS: BLOOD UREA NITROGEN 7 MG/DL (7-18); CALCIUM LEVEL 8.5 MG/DL (8.5-10.1); CARBON DIOXIDE LEVEL 26 MEQ/L (21-32); CHLORIDE LEVEL 102 MEQ/L (98-107); CREATININE FOR GFR 0.54 MG/DL (0.55-1.30); GLOMERULAR FILTRATION RATE > 60.0 (>60); GLUCOSE, FASTING 91 MG/DL (70-100); SODIUM LEVEL 136 MEQ/L (136-145)
[2021-04-26] MEDS ORDERED: REGL10TA6 PO (23:06)
[2021-04-26] MEDS ORDERED: POTA20TA6 PO (23:06)
--- NOTE | 2021-04-27 11:31 | ED PDOC ---
Post-Departure Follow-Up [facility] - dr ruiz and dr nazario faxed formal report of gb us for fu beverly Avery-Isaac Rene MD Apr 27, 2021 11:31
== END 2021-04-26 23:27 | disposition home or self-care (01) ==
LOC: M ED 15:36
DX: O21.0 Mild hyperemesis gravidarum (principal); O99.281 Endocrine, nutritional and metabolic diseases complicating pregnancy, first trimester; E87.1 Hypo-osmolality and hyponatremia; E87.6 Hypokalemia; Z3A.14 14 weeks gestation of pregnancy; O99.342 Other mental disorders complicating pregnancy, second trimester; F41.9 Anxiety disorder, unspecified; O99.332 Smoking (tobacco) complicating pregnancy, second trimester; F17.210 Nicotine dependence, cigarettes, uncomplicated; O99.322 Drug use complicating pregnancy, second trimester; F12.20 Cannabis dependence, uncomplicated; Z88.2 Allergy status to sulfonamides; Z88.8 Allergy status to other drugs, medicaments and biological substances
CPT/HCPCS: 76705; 76811; 80047; 80048; 80076; 81001; 83605; 83690; 83735; 85025; 86850; 86900; 86901; 96361; 96365; 96375; 99284; J2405; J2765; J3411

== ENCOUNTER → 2021-05-02 | Outpatient (REF) | payer OTHER, MEDICAID ==
[~2021-05-02] MED LIST changes: +POTA20TA6 PO
[2021-05-02 16:54] LABS: HEMATOCRIT 37.5 % (36.0-47.0); HEMOGLOBIN 12.6 g/dl (12.0-15.5); MEAN CORPUSCULAR HEMOGLOBIN 32.9 pg (27.0-33.0); MEAN CORPUSCULAR HGB CONC 33.6 g/dl (32.0-36.5); MEAN CORPUSCULAR VOLUME 97.9 fl (80.0-96.0); PLATELET COUNT, AUTOMATED 265 10^3/uL (150-450); RED BLOOD COUNT 3.83 10^6/uL (4.00-5.40); WHITE BLOOD COUNT 10.5 10^3/uL (4.0-10.0)
[2021-05-02 18:00] LABS: BLOOD UREA NITROGEN 4 MG/DL (7-18); CALCIUM LEVEL 8.6 MG/DL (8.5-10.1); CARBON DIOXIDE LEVEL 24 MEQ/L (21-32); CHLORIDE LEVEL 106 MEQ/L (98-107); CREATININE FOR GFR 0.51 MG/DL (0.55-1.30); GLOMERULAR FILTRATION RATE > 60.0 (>60); GLUCOSE, FASTING 86 MG/DL (70-100); HCG, SERUM QUANTITATIVE 26068 MIU/ML; HEPATITIS B SURFACE ANTIGEN NEGATIVE (NEGATIVE); HEPATITIS C VIRUS ABY INDEX < 0.0 INDEX (<0.8); HIV 1&2 SCREEN CENTAUR NEGATIVE (NEGATIVE); POTASSIUM SERUM 4.3 MEQ/L (3.5-5.1); SODIUM LEVEL 134 MEQ/L (136-145)
== END ==
LOC: M LAB REF 16:11
PROVIDERS: ATTEND Obstetrics & Gynecology
DX: O36.80X0 Pregnancy with inconclusive fetal viability, not applicable or unspecified (principal); Z32.01 Encounter for pregnancy test, result positive

== ENCOUNTER 2021-05-12 00:31 | Emergency (ER) | payer MEDICAID, OTHER ==
[~2021-05-12] VITALS: Ht 165.1 cm; Wt 74.0 kg
[2021-05-12] MEDS ORDERED: METOCLOPRAMIDE INJ 10MG/2ML VIAL (J2765 PER 1) IV ONE (03:15)
[2021-05-12 03:33] LABS: BASO % 0.1 % (0.0-1.0); EOS % 0.1 % (0.0-3.0); HEMATOCRIT 39.2 % (36.0-47.0); HEMOGLOBIN 14.1 g/dl (12.0-15.5); LYMPH # 1.4 10^3/uL (1.5-5.0); LYMPH % 5.8 % (24.0-44.0); MEAN CORPUSCULAR HEMOGLOBIN 33.4 pg (27.0-33.0); MEAN CORPUSCULAR VOLUME 92.9 fl (80.0-96.0); MONO # 0.8 10^3/uL (0.0-0.8); MONO % 3.5 % (2.0-8.0); NEUTROPHILS # 21.1 10^3/uL (1.5-8.5); PLATELET COUNT, AUTOMATED 364 10^3/uL (150-450); RED BLOOD COUNT 4.22 10^6/uL (4.00-5.40); WHITE BLOOD COUNT 23.5 10^3/uL (4.0-10.0)
[2021-05-12 03:45] LABS: ALBUMIN 3.6 GM/DL (3.2-5.2); ALT/SGPT 18 U/L (12-78); BILIRUBIN,DIRECT 0.2 MG/DL (0.0-0.2); BILIRUBIN,TOTAL 0.7 MG/DL (0.2-1.0); BLOOD UREA NITROGEN 8 MG/DL (7-18); CALCIUM LEVEL 9.7 MG/DL (8.5-10.1); CARBON DIOXIDE LEVEL 23 MEQ/L (21-32); CHLORIDE LEVEL 102 MEQ/L (98-107); CREATININE FOR GFR 0.91 MG/DL (0.55-1.30); GLOMERULAR FILTRATION RATE > 60.0 (>60); GLUCOSE, FASTING 127 MG/DL (70-100); LIPASE 57 U/L (73-393); POTASSIUM SERUM 3.3 MEQ/L (3.5-5.1); SODIUM LEVEL 140 MEQ/L (136-145); TOTAL PROTEIN 7.7 GM/DL (6.4-8.2)
[2021-05-12] MEDS ORDERED: POTASSIUM CHLORIDE 10 MEQ SR TABLET PO ONE (04:25)
[2021-05-12] MEDS ORDERED: NS 1,000 ML IV ONE (04:25)
[2021-05-12] MEDS ORDERED: PROMETHAZINE INJ 25 MG/ML VIAL (J2550) IV ONE (04:35)
--- NOTE | 2021-05-12 05:46 | REPVR ---
PROCEDURE INFORMATION: Exam: US Abdomen, Limited; Appendix Exam date and time: 05/12/2021 5:10 AM Age: 25 years old Clinical indication: Generalized; ; Patient HX: Vomiting with abdominal pain for months; Additional info: Rlq pain eval for appy TECHNIQUE: Imaging protocol: US abdomen. Real time ultrasound with image documentation. Limited exam focused on the appendix. COMPARISON: GALLBLADDER US 05/12/2021 4:50 AM FINDINGS: Appendix: The appendix was sought but not identified. Intraperitoneal space: No free fluid is seen in the right lower quadrant. Ovaries: An ovoid, hypoechoic structure with internal vascularity likely represents the right ovary and measures 3.4 x 2.0 x 2.5 cm. IMPRESSION: The appendix which could not be identified. No secondary signs of appendicitis identified but appendicitis is not excluded. Electronically signed by: Elena Rojas On 05/12/2021 05:46:01 AM
--- NOTE | 2021-05-12 05:57 | REPVR ---
PROCEDURE INFORMATION: Exam: US Abdomen, Limited; Right Upper Quadrant Exam date and time: 05/12/2021 5:10 AM Age: 25 years old Clinical indication: Abdominal pain; Generalized; ; Patient HX: Vomiting with pain for months; Additional info: Ruq pain TECHNIQUE: Imaging protocol: US abdomen. Real time ultrasound with image documentation. Limited exam focused on the right upper quadrant. COMPARISON: GALLBLADDER US 04/26/2021 5:46 PM FINDINGS: Liver: The liver is normal in size and echogenicity. No focal lesions are identified. Gallbladder: No stones or sludge are seen in the gallbladder. No wall thickening or pericholecystic fluid are present. Common bile duct: No biliary ductal dilation is seen. The common bile duct measures 4 mm in diameter compared to 7 mm on the recent prior exam. The duct was not visualized in its entirety, partially obscured by bowel gas. Pancreas: The pancreas was not well visualized, obscured by bowel gas. Right kidney: The right kidney is normal in echogenicity with no hydronephrosis or stones identified. The right kidney measures 8.4 cm in length. This measurement is probably somewhat foreshortened as the right kidney measured 9.5 cm in length on the recent prior ultrasound. IMPRESSION: 1. No cholelithiasis, biliary ductal dilation, or signs of acute cholecystitis. 2. No hydronephrosis at the right kidney. Electronically signed by: Elena Rojas On 05/12/2021 05:57:01 AM
[2021-05-12] MEDS ORDERED: REGL10TA6 PO (06:47)
[2021-05-12 07:05] VITALS: BP 114/67
== END 2021-05-12 07:13 | disposition home or self-care (01) ==
LOC: M ED 00:31
DX: O21.9 Vomiting of pregnancy, unspecified (principal); O99.342 Other mental disorders complicating pregnancy, second trimester; F41.9 Anxiety disorder, unspecified; Z3A.16 16 weeks gestation of pregnancy; O99.332 Smoking (tobacco) complicating pregnancy, second trimester; F17.210 Nicotine dependence, cigarettes, uncomplicated; O99.322 Drug use complicating pregnancy, second trimester; F12.10 Cannabis abuse, uncomplicated; Z88.2 Allergy status to sulfonamides; Z88.8 Allergy status to other drugs, medicaments and biological substances
CPT/HCPCS: 76705; 76857; 80048; 80076; 83690; 85025; 93041; 96361; 96374; 96375; 99285; J2765

== ENCOUNTER → 2021-07-30 | Outpatient (CLI) | payer OTHER ==
[2021-07-30 14:09] LABS: HEMATOCRIT 36.8 % (36.0-47.0); HEMOGLOBIN 12.4 g/dl (12.0-15.5); MEAN CORPUSCULAR HEMOGLOBIN 33.2 pg (27.0-33.0); MEAN CORPUSCULAR HGB CONC 33.7 g/dl (32.0-36.5); MEAN CORPUSCULAR VOLUME 98.4 fl (80.0-96.0); PLATELET COUNT, AUTOMATED 249 10^3/uL (150-450); RED BLOOD COUNT 3.74 10^6/uL (4.00-5.40); WHITE BLOOD COUNT 11.9 10^3/uL (4.0-10.0)
== END ==
LOC: M LAB 11:29
PROVIDERS: ATTEND Obstetrics & Gynecology
DX: Z36.89 Encounter for other specified antenatal screening (principal)

== ENCOUNTER 2021-08-13 10:16 | Emergency (ER) | payer OTHER ==
[~2021-08-13] VITALS: Ht 165.1 cm; Wt 73.1 kg
[2021-08-13 11:50] LABS: BASO % 0.3 % (0.0-1.0); EOS % 0.1 % (0.0-3.0); HEMATOCRIT 39.5 % (36.0-47.0); HEMOGLOBIN 13.7 g/dl (12.0-15.5); LYMPH # 1.6 10^3/uL (1.5-5.0); LYMPH % 10.9 % (24.0-44.0); MEAN CORPUSCULAR HEMOGLOBIN 33.3 pg (27.0-33.0); MEAN CORPUSCULAR HGB CONC 34.7 g/dl (32.0-36.5); MEAN CORPUSCULAR VOLUME 96.1 fl (80.0-96.0); MONO # 0.7 10^3/uL (0.0-0.8); MONO % 4.7 % (2.0-8.0); NEUTROPHILS # 12.2 10^3/uL (1.5-8.5); NEUTROPHILS % 83.5 % (36.0-66.0); PLATELET COUNT, AUTOMATED 265 10^3/uL (150-450); RED BLOOD COUNT 4.11 10^6/uL (4.00-5.40); WHITE BLOOD COUNT 14.6 10^3/uL (4.0-10.0)
[2021-08-13 12:01] LABS: INR 0.98; PROTHROMBIN TIME 13.3 SECONDS (12.7-14.5)
[2021-08-13 12:07] LABS: ALBUMIN 3.5 GM/DL (3.2-5.2); ALT/SGPT 16 U/L (12-78); BILIRUBIN,TOTAL 0.6 MG/DL (0.2-1.0); BLOOD UREA NITROGEN 8 MG/DL (7-18); CALCIUM LEVEL 11.3 MG/DL (8.5-10.1); CARBON DIOXIDE LEVEL 24 MEQ/L (21-32); CHLORIDE LEVEL 103 MEQ/L (98-107); GLOMERULAR FILTRATION RATE > 60.0 (>60); GLUCOSE, FASTING 130 MG/DL (70-100); POTASSIUM SERUM 3.4 MEQ/L (3.5-5.1); SODIUM LEVEL 137 MEQ/L (136-145); TOTAL PROTEIN 7.7 GM/DL (6.4-8.2)
[2021-08-13] MEDS ORDERED: ONDANSETRON 4MG/2ML VIAL IV ONE ×2 (12:35→15:45)
[2021-08-13] MEDS ORDERED: NS 1,000 ML IV ONE ×2 (12:35→15:45)
[2021-08-13] MEDS ORDERED: METOCLOPRAMIDE INJ 10MG/2ML VIAL (J2765 PER 1) IV ONE (13:55)
[2021-08-13] MEDS ORDERED: PANTOPRAZOLE 40MG VIAL (C9113 PER 1) IV ONE (14:05)
[2021-08-13 14:17] LABS: HEMATOCRIT 35.5 % (36.0-47.0); HEMOGLOBIN 12.4 g/dl (12.0-15.5)
[2021-08-13] MEDS ORDERED: POTA1TAB14 PO (15:54)
[2021-08-13] MEDS ORDERED: ONDA4TAB6 PO (15:54)
[2021-08-13] MEDS ORDERED: OMEP-218 PO (15:54)
[2021-08-13 16:47] VITALS: BP 107/55
== END 2021-08-13 17:02 | disposition home or self-care (01) ==
LOC: M ED 10:16
DX: O99.612 Diseases of the digestive system complicating pregnancy, second trimester (principal); K29.70 Gastritis, unspecified, without bleeding; Z3A.21 21 weeks gestation of pregnancy; Z88.2 Allergy status to sulfonamides; Z88.8 Allergy status to other drugs, medicaments and biological substances; O99.332 Smoking (tobacco) complicating pregnancy, second trimester; Z79.899 Other long term (current) drug therapy; F17.210 Nicotine dependence, cigarettes, uncomplicated
CPT/HCPCS: 80053; 81001; 85014; 85018; 85025; 85610; 87086; 96361; 96374; 96375; 96376; 99283; C9113; J2405; J2765

== ENCOUNTER → 2021-09-26 | Outpatient (REF) | payer OTHER ==
[~2021-09-26] MED LIST changes: +OMEP-218 PO; +POTA1TAB14 PO
== END ==
LOC: M LAB REF 16:11
PROVIDERS: ATTEND Obstetrics & Gynecology
DX: Z36.85 Encounter for antenatal screening for Streptococcus B (principal); Z3A.00 Weeks of gestation of pregnancy not specified

== ENCOUNTER 2022-02-28 11:08 | Emergency (ER) | payer OTHER ==
[~2022-02-28] VITALS: Ht 165.1 cm; Wt 64.7 kg
[~2022-02-28 11:08] MED LIST changes: +OMEP-173 PO; -OMEP-218 PO; +POTA-151 PO; -POTA20TA6 PO
[2022-02-28] MEDS ORDERED: AMOX500C PO (13:33)
[2022-02-28] MEDS ORDERED: MAGICMW SSP (13:33)
[2022-02-28 13:42] VITALS: BP 116/73
== END 2022-02-28 13:55 | disposition home or self-care (01) ==
LOC: M ED 11:08
DX: J02.0 Streptococcal pharyngitis (principal); F41.9 Anxiety disorder, unspecified; Z88.2 Allergy status to sulfonamides; Z88.8 Allergy status to other drugs, medicaments and biological substances

== ENCOUNTER 2022-09-14 00:43 | Emergency (ER) | payer OTHER ==
[~2022-09-14] VITALS: Ht 165.1 cm; Wt 68.3 kg
[~2022-09-14 00:43] MED LIST changes: +AMOX500C PO; +MAGICMW SSP
[2022-09-14 01:29] LABS: ALBUMIN 4.3 GM/DL (3.2-5.2); ALT/SGPT 14 U/L (12-78); BILIRUBIN,DIRECT 0.2 MG/DL (0.0-0.2); BILIRUBIN,TOTAL 0.9 MG/DL (0.2-1.0); BLOOD UREA NITROGEN 13 MG/DL (7-18); CALCIUM LEVEL 9.6 MG/DL (8.5-10.1); CARBON DIOXIDE LEVEL 27 MEQ/L (21-32); CHLORIDE LEVEL 102 MEQ/L (98-107); CREATININE FOR GFR 1.05 MG/DL (0.55-1.30); GLOMERULAR FILTRATION RATE > 60.0 (>60); GLUCOSE, FASTING 134 MG/DL (70-100); LIPASE 104 U/L (73-393); POTASSIUM SERUM 4.5 MEQ/L (3.5-5.1); SODIUM LEVEL 138 MEQ/L (136-145); TOTAL PROTEIN 7.8 GM/DL (6.4-8.2)
[2022-09-14 01:44] LABS: BASO % 0.3 % (0.0-1.0); EOS % 0.3 % (0.0-3.0); HEMATOCRIT 42.3 % (36.0-47.0); HEMOGLOBIN 14.5 g/dl (12.0-15.5); LYMPH # 1.3 10^3/uL (1.5-5.0); LYMPH % 10.7 % (24.0-44.0); MEAN CORPUSCULAR HGB CONC 34.3 g/dl (32.0-36.5); MEAN CORPUSCULAR VOLUME 90.4 fl (80.0-96.0); MONO # 0.2 10^3/uL (0.0-0.8); MONO % 1.8 % (2.0-8.0); NEUTROPHILS # 10.1 10^3/uL (1.5-8.5); NEUTROPHILS % 86.6 % (36.0-66.0); PLATELET COUNT, AUTOMATED 322 10^3/uL (150-450); RED BLOOD COUNT 4.68 10^6/uL (4.00-5.40); WHITE BLOOD COUNT 11.6 10^3/uL (4.0-10.0)
[2022-09-14 01:47] LABS: URINE PREG TEST NEGATIVE (NEGATIVE)
[2022-09-14] MEDS ORDERED: ONDANSETRON 4MG 2ML VIAL IV ONE (01:55)
[2022-09-14] MEDS ORDERED: NS 1,000 ML IV ONE (01:55)
[2022-09-14] MEDS ORDERED: HALOPERIDOL 5MG/ML VIAL (J1630 PER 1) IV ONE (02:20)
[2022-09-14] MEDS ORDERED: ISOVUE-370 76% 100ML VIAL As Ordered ONE (02:26)
[2022-09-14] MEDS ORDERED: metroNIDAZOLE (FLAGYL) 500MG TABLET PO ONE (06:30)
[2022-09-14] MEDS ORDERED: CIPROFLOXACIN 500MG TABLET PO ONE (06:30)
[2022-09-14] MEDS ORDERED: CIPR-249 PO (06:39)
[2022-09-14] MEDS ORDERED: ONDA4TAB6 PO (06:39)
[2022-09-14] MEDS ORDERED: FLAG375C PO (06:39)
[2022-09-14 06:53] VITALS: BP 111/72
== END 2022-09-14 06:58 | disposition home or self-care (01) ==
LOC: M ED 00:43
DX: K52.9 Noninfective gastroenteritis and colitis, unspecified (principal); F17.200 Nicotine dependence, unspecified, uncomplicated; Z88.2 Allergy status to sulfonamides; Z88.8 Allergy status to other drugs, medicaments and biological substances
CPT/HCPCS: 74177; 80048; 80076; 81000; 81015; 83690; 84703; 85025; 87086; 87486; 87581; 87633; 87798; 96374; 96375; 99284; J1630; J2405

== ENCOUNTER 2022-12-21 22:51 | Emergency (ER) | payer OTHER ==
[~2022-12-21] VITALS: Ht 165.1 cm; Wt 65.3 kg
[2022-12-21 22:51] VITALS: BP 131/77
[~2022-12-21 22:51] MED LIST changes: +FLAG375C PO
[2022-12-22] MEDS ORDERED: AMOX875T2 PO (19:31)
[2022-12-22] MEDS ORDERED: IBUP80TA PO (19:31)
== END 2022-12-22 03:04 | disposition left against medical advice (07) ==
LOC: M ED 22:51
DX: Z53.21 Procedure and treatment not carried out due to patient leaving prior to being seen by health care provider (principal)

== ENCOUNTER 2022-12-22 10:37 | Emergency (ER) | payer OTHER ==
[~2022-12-22] VITALS: Ht 165.1 cm; Wt 63.5 kg
[2022-12-22 15:32] VITALS: BP 114/80
[2022-12-22] MEDS ORDERED: AMPICILLIN SOD/SULBACTAM SOD 3 GM in D5W MINI-BAG PLUS 100 ML IV ONE (17:10)
[2022-12-22 18:14] LABS: BASO # 0.1 10^3/uL (0.0-0.2); BASO % 0.4 % (0.0-1.0); EOS # 0.2 10^3/uL (0.0-0.5); EOS % 1.2 % (0.0-3.0); HEMATOCRIT 44.9 % (36.0-47.0); HEMOGLOBIN 14.9 g/dl (12.0-15.5); LYMPH # 2.9 10^3/uL (1.5-5.0); LYMPH % 20.2 % (24.0-44.0); MEAN CORPUSCULAR HEMOGLOBIN 31.4 pg (27.0-33.0); MEAN CORPUSCULAR HGB CONC 33.2 g/dl (32.0-36.5); MEAN CORPUSCULAR VOLUME 94.5 fl (80.0-96.0); MONO # 1.3 10^3/uL (0.0-0.8); MONO % 9.1 % (2.0-8.0); NEUTROPHILS # 9.9 10^3/uL (1.5-8.5); NEUTROPHILS % 68.8 % (36.0-66.0); PLATELET COUNT, AUTOMATED 333 10^3/uL (150-450); RED BLOOD COUNT 4.75 10^6/uL (4.00-5.40); WHITE BLOOD COUNT 14.4 10^3/uL (4.0-10.0)
[2022-12-22] MEDS ORDERED: ISOVUE-370 76% 100ML VIAL As Ordered ONE (18:31)
[2022-12-22 18:46] LABS: ERYTHROCYTE SEDIMENTATION RATE 32 mm/hr (0-20)
[2022-12-22] MEDS ORDERED: IBUP80TA PO (19:31)
[2022-12-22] MEDS ORDERED: AMOX875T2 PO (19:31)
== END 2022-12-22 20:02 | disposition home or self-care (01) ==
LOC: M ED 10:37
DX: K12.2 Cellulitis and abscess of mouth (principal); F17.200 Nicotine dependence, unspecified, uncomplicated; Z88.1 Allergy status to other antibiotic agents; Z88.8 Allergy status to other drugs, medicaments and biological substances; Z79.2 Long term (current) use of antibiotics
CPT/HCPCS: 70491; 80047; 83605; 84702; 85025; 85652; 86140; 87040; 96365; 96366; 96375; 99283; J0295; J1100

== ENCOUNTER → 2024-02-24 | Outpatient (REF) | payer OTHER, MEDICAID ==
[~2024-02-24] MED LIST changes: +AMOX875T2 PO; +POTA-298 PO; -POTA1TAB14 PO
[2024-02-24 14:39] LABS: HEMATOCRIT 34.6 % (36.0-47.0); HEMOGLOBIN 11.9 g/dl (12.0-15.5); MEAN CORPUSCULAR HEMOGLOBIN 33.5 pg (27.0-33.0); MEAN CORPUSCULAR HGB CONC 34.4 g/dl (32.0-36.5); MEAN CORPUSCULAR VOLUME 97.5 fl (80.0-96.0); PLATELET COUNT, AUTOMATED 263 10^3/uL (150-450); RED BLOOD COUNT 3.55 10^6/uL (4.00-5.40)
[2024-02-24 15:37] LABS: HIV 1&2 SCREEN NEGATIVE (NEGATIVE)
[2024-02-24 15:45] LABS: HEPATITIS C VIRUS ABY INDEX < 0.02 INDEX (<0.8)
[2024-02-24 15:52] LABS: HCG, SERUM QUANTITATIVE 7387.1 MIU/ML (<4.2)
== END ==
LOC: M LAB REF 11:48
PROVIDERS: ATTEND Obstetrics & Gynecology
DX: Z32.01 Encounter for pregnancy test, result positive (principal); O36.80X0 Pregnancy with inconclusive fetal viability, not applicable or unspecified

== ENCOUNTER → 2024-03-16 | Outpatient (CLI) | payer OTHER | LOC: M WHC 13:26 | PROVIDERS: ATTEND Obstetrics & Gynecology | DX: O36.80X0 Pregnancy with inconclusive fetal viability, not applicable or unspecified (principal); Z3A.33 33 weeks gestation of pregnancy ==

== ENCOUNTER → 2024-03-22 | Outpatient (REF) | payer OTHER | LOC: M LAB REF 12:15 | PROVIDERS: ATTEND Obstetrics & Gynecology | DX: Z34.83 Encounter for supervision of other normal pregnancy, third trimester (principal) ==

== ENCOUNTER → 2024-04-05 | Outpatient (REF) | payer OTHER | LOC: M LAB REF 12:29 | PROVIDERS: ATTEND Obstetrics & Gynecology | DX: Z34.83 Encounter for supervision of other normal pregnancy, third trimester (principal) ==

== ENCOUNTER → 2024-04-06 | Outpatient (CLI) | payer OTHER ==
[~2024-04-06] MED LIST changes: +ONDA-282 PO; -ONDA4TAB6 PO
== END ==
LOC: M LAB 10:04
PROVIDERS: ATTEND Obstetrics & Gynecology
DX: Z34.83 Encounter for supervision of other normal pregnancy, third trimester (principal)
CPT/HCPCS: 36415; 82950; 86850; 86900; 86901; J2790

== ENCOUNTER → 2024-04-13 | Outpatient (CLI) | payer OTHER | LOC: M RAD 13:59 | PROVIDERS: ATTEND Obstetrics & Gynecology | DX: Z34.83 Encounter for supervision of other normal pregnancy, third trimester (principal); Z3A.37 37 weeks gestation of pregnancy ==

== ENCOUNTER → 2024-04-15 | Outpatient (CLI) | payer OTHER | LOC: M LAB 07:43 | PROVIDERS: ATTEND Obstetrics & Gynecology | DX: O99.810 Abnormal glucose complicating pregnancy (principal); Z3A.00 Weeks of gestation of pregnancy not specified ==